=== PATIENT | female | born 1985 | race Caucasian/White ===

== ENCOUNTER 2020-05-27 15:37 | Outpatient (REF) | payer OTHER, SELFPAY ==
--- NOTE | 2020-05-27 15:45 | XR_ITS ---
EXAMINATION: XR CHEST CLINICAL INFORMATION: Cough COMPARISON: Chest x-ray 04/06/2018. Abdomen 02/07/2020 TECHNIQUE: 2 views of the chest were obtained. FINDINGS: Frontal view there is a small vague parenchymal opacity in the subpleural lung at the left lower lobe. This opacity was not present on the abdomen series of 02/07/2020. This opacity measures about 2 cm. Suspect small acute peripheral pneumonia given history of cough. There is no pleural effusion. There is no pulmonary vascular congestion. Cardiac and mediastinal contours are normal. The heart size is normal. There are surgical clips in the upper abdomen XR/XR chest 2V IMPRESSION: Small vague peripheral opacity left lung base suspicious for pneumonia. Short-term follow-up chest x-ray in 2-3 weeks would be helpful for further assessment
== END 2020-05-27 15:38 | disposition home or self-care (01) ==
LOC: HO.XRAY 15:37
PROVIDERS: PCP Family Medicine; Visit Provider Family Medicine
DX: R05 Cough (principal)
CPT/HCPCS: 71046

== ENCOUNTER 2020-06-19 16:03 | Outpatient (REF) | payer OTHER, SELFPAY ==
--- NOTE | 2020-06-19 16:07 | XR_ITS ---
EXAMINATION: XR CHEST CLINICAL INFORMATION: Left lung base density on study of May 27, 2020 COMPARISON: May 27, 2020 TECHNIQUE: 2 views of the chest were obtained. FINDINGS: No significant abnormality is noted involving the heart, lungs, mediastinum, bony thorax or soft tissues. XR/XR chest 2V IMPRESSION: No acute disease.
== END 2020-06-19 16:04 | disposition home or self-care (01) ==
LOC: HO.XRAY 16:03
PROVIDERS: PCP Family Medicine; Visit Provider Family Medicine
DX: R05 Cough (principal); R93.89 Abnormal findings on diagnostic imaging of other specified body structures
CPT/HCPCS: 71046

== ENCOUNTER 2020-09-09 10:17 | Outpatient (REF) | payer OTHER, SELFPAY ==
[2020-09-09 13:35] LABS: MANUAL DIFF FLAG NO
[2020-09-09 13:39] LABS: Basophils Percent Auto 0.6 % (0-2); Eosinophils Absolute Auto 0.2 X10*3/uL (0.0-0.4); Hematocrit 45.2 % (37-47); Hemoglobin 15.1 g/dl (12.0-16.0); Imm Gran Abs Auto 0.02 X10*3/uL (0.00-0.03); Imm Gran Pct Auto 0.3 % (0.0-0.4); Lymphocytes Absolute Auto 2.1 X10*3/uL (1.2-4.9); Lymphocytes Percent Auto 31.2 % (20-40); Mean Corpuscular HGB Conc 33.4 g/dl (31.0-35.0); Mean Corpuscular Hemoglobin 30.3 pg (27.0-33.0); Mean Corpuscular Volume 90.6 fL (80-98); Mean Platelet Volume 10.1 fL (9.4-12.3); Monocytes Absolute Auto 0.4 X10*3/uL (0.1-1.2); Monocytes Percent Auto 6.2 % (2-11); Neutrophils Absolute Auto 3.9 X10*3/uL (2.0-8.3); Neutrophils Percent Auto 58.7 % (45-73); Platelet Count 298 X10*3/uL (160-400); Red Blood Count 4.99 X10*6/uL (4.20-5.50); Red Cell Distribution Width 12.8 % (11.0-16.0); White Blood Count 6.6 X10*3/uL (4.8-10.8)
[2020-09-09 13:57] LABS: Alanine Aminotransferase 15 U/L (0-31); Albumin Level 4.1 g/dL (3.5-5.0); Alkaline Phosphatase 63 U/L (39-117); Anion Gap 12 (12-20); Aspartate Amino Transferase 14 U/L (5-31); Bilirubin Total 0.4 mg/dL (0.0-1.0); Blood Urea Nitrogen 8 mg/dL (9-16); Calcium 8.8 mg/dL (8.4-10.2); Carbon Dioxide 30 mmol/L (22-29); Chloride 103 mmol/L (96-108); Cholesterol 172 mg/dL; Estimated Glomerular Filt Rate > 60; Glucose Fasting 95 mg/dL (60-99); HDL Cholesterol 69 mg/dL; Iron 60 mcg/dL (30-160); LDL Cholesterol Calculated 88 mg/dl; Percent Iron Saturation 18 % (15-50); Potassium 4.6 mmol/L (3.3-5.1); Sodium 140 mmol/L (135-145); Total Iron Binding Capacity 338 mcg/dL (228-428); Total Protein 6.6 g/dL (6.5-8.0); Triglycerides 75 mg/dL; Unsaturated Iron Binding 278 ug/dL
[2020-09-09 14:21] LABS: TSH reflex Free T4 1.46 uIU/mL (0.32-4.0)
[2020-09-09 14:37] LABS: Folate 4.8 ng/mL (> or = 4.0); Vitamin B12 398 pg/mL (200-900)
== END 2020-09-09 10:18 | disposition home or self-care (01) ==
LOC: HO.WFDLDS 10:17
PROVIDERS: Visit Provider Family Medicine
DX: Z00.00 Encounter for general adult medical examination without abnormal findings (principal); R25.1 Tremor, unspecified
CPT/HCPCS: 36415; 80053; 80061; 82607; 82746; 83540; 84443; 85025

== ENCOUNTER 2021-09-19 09:26 | Outpatient (REF) | payer OTHER, SELFPAY ==
[2021-09-19 10:30] LABS: MANUAL DIFF FLAG NO
[2021-09-19 10:36] LABS: Basophils Percent Auto 0.4 % (0-2); Eosinophils Absolute Auto 0.2 X10*3/uL (0.0-0.4); Eosinophils Percent Auto 2.6 % (0-4); Hematocrit 43.2 % (37.0-47.0); Hemoglobin 14.1 g/dl (12.0-16.0); Imm Gran Abs Auto 0.02 X10*3/uL (0.00-0.03); Imm Gran Pct Auto 0.3 % (0.0-0.4); Lymphocytes Absolute Auto 1.8 X10*3/uL (1.2-4.9); Lymphocytes Percent Auto 26.1 % (20-40); Mean Corpuscular HGB Conc 32.6 g/dl (31.0-35.0); Mean Corpuscular Hemoglobin 28.7 pg (27.0-33.0); Mean Platelet Volume 9.8 fL (9.4-12.3); Monocytes Absolute Auto 0.4 X10*3/uL (0.1-1.2); Monocytes Percent Auto 5.8 % (2-11); Neutrophils Absolute Auto 4.5 x10*3/uL (2.0-8.3); Neutrophils Percent Auto 64.8 % (45-73); Platelet Count 318 X10*3/uL (160-400); Red Blood Count 4.91 X10*6/uL (4.20-5.50); Red Cell Distribution Width 12.8 % (11.0-16.0); White Blood Count 6.9 X10*3/uL (4.8-10.8)
[2021-09-19 10:42] LABS: Appearance Urine CLEAR; Color Urine YELLOW; Glucose Urine UA NEG (NEG); Leukocyte Esterase Urine NEG (NEG); Nitrite Urine NEG (NEG); PH 7.5 (5.0-8.0); Specific Gravity - Urine 1.015 (1.005-1.025); Urine Blood NEG (NEG); Urine Ketones NEG (NEG); Urine Protein NEG (NEG-TRACE)
[2021-09-19 10:54] LABS: Alanine Aminotransferase 11 U/L (0-31); Albumin Level 3.9 g/dL (3.5-5.0); Alkaline Phosphatase 64 U/L (39-117); Anion Gap 10 (12-20); Aspartate Amino Transferase 12 U/L (5-31); Bilirubin Total < 0.2 mg/dL (0.0-1.0); Blood Urea Nitrogen 8 mg/dL (9-16); Carbon Dioxide 24 mmol/L (22-29); Chloride 107 mmol/L (96-108); Cholesterol 203 mg/dL; Estimated Glomerular Filt Rate > 60; Glucose Fasting 95 mg/dL (60-99); HDL Cholesterol 68 mg/dL; LDL Cholesterol Calculated 126 mg/dl; Potassium 4.2 mmol/L (3.3-5.1); Sodium 137 mmol/L (135-145); Total Protein 6.6 g/dL (6.5-8.0); Triglycerides 48 mg/dL
[2021-09-19 11:16] LABS: TSH reflex Free T4 1.17 uIU/mL (0.32-4.0)
== END 2021-09-19 09:27 | disposition home or self-care (01) ==
LOC: HO.WFDLDS 09:26
PROVIDERS: Visit Provider Family Medicine
DX: Z00.00 Encounter for general adult medical examination without abnormal findings (principal)
CPT/HCPCS: 36415; 80053; 80061; 81003; 84443; 85025

== ENCOUNTER 2022-06-12 11:53 | Outpatient (REF) | payer OTHER, SELFPAY ==
[2022-06-12 13:31] LABS: Thyroid Stimulating Hormone 1.66 uIU/mL (0.32-4.0)
[2022-06-13 17:45] LABS: Follicle Stimulating Hormone 8.6 mIU/mL; Prolactin 6.2 ng/mL
[2022-06-15 15:48] LABS: Anti-Mullerian Hormone-Female 0.62 ng/mL (0.36-10.07)
[2022-06-18 01:20] LABS: Estradiol Free 0.87 pg/mL; Estradiol, Ultrasensitive 46 pg/mL
== END 2022-06-12 11:54 | disposition home or self-care (01) ==
LOC: HO.LAB 11:53
PROVIDERS: PCP Family Medicine; Visit Provider Obstetrics & Gynecology
DX: N97.9 Female infertility, unspecified (principal)
CPT/HCPCS: 36415; 82397; 82670; 82681; 83001; 84146; 84443

== ENCOUNTER 2022-07-16 15:58 | Outpatient (REF) | payer OTHER, SELFPAY | END 2022-07-16 15:59 | disposition home or self-care (01) | LOC: HO.LAB 15:58 | PROVIDERS: Visit Provider Family Medicine | DX: Z13.89 Encounter for screening for other disorder (principal) ==

== ENCOUNTER 2022-11-05 07:15 | Outpatient (REF) | payer OTHER, SELFPAY ==
--- NOTE | ~2022-11-05 | XR_ITS ---
EXAMINATION: XR CHEST CLINICAL INFORMATION: Cough COMPARISON: Previous chest x-ray most recent June 2020 TECHNIQUE: 2 views of the chest were obtained. FINDINGS: The cardiac and mediastinal contours are stable. There are increased markings in the right upper lobe questionable for small infiltrate. The lungs are otherwise clear. No pleural effusion or pneumothorax. Bony structures are normal. Surgical clips in the region of the stomach. XR/XR chest 2V IMPRESSION: Question small right upper lobe infiltrate. Findings will be communicated by the [place] work flow personal protection specialist.
== END 2022-11-05 07:16 | disposition home or self-care (01) ==
LOC: HO.HMGCX 07:15
PROVIDERS: PCP Family Medicine; Visit Provider Family Medicine
DX: R05.9 Cough, unspecified (principal)
CPT/HCPCS: 71046

== ENCOUNTER 2023-01-08 09:00 | Outpatient (AMB) | payer OTHER, SELFPAY ==
[2023-01-08 09:07] VITALS: BP 110/64; PULSE 93; O2SAT 98; BMI 36.3
--- NOTE | 2023-01-08 09:07 | A.OFFPC_ITS ---
Vital Signs 01/08/23 09:07 Height 4 ft 11.5 in Weight 183 lb BMI 36.3 BP 110/64 Blood Pressure Location Lt brachial Position Sitting Pulse 93 Pulse Oximetry (%) 98 Oxygen Delivery Method Room Air Intake Visit Reasons: CPE with f/u labs and health maint. Intake Note: Patient is here for her physical today. Allergies clindamycin [CLINDAMYCIN] Allergy (Severe, Verified 01/08/23 09:10) RASH Clindamycin HCl Allergy (Unknown, Verified 01/08/23 09:10) rash, full body rash SEASONAL ALLERGIES Allergy (Intermediate, Uncoded 01/08/23 09:10) RUNNY NOSE SNEEZING desolvable stitches Allergy (Mild, Uncoded 01/08/23 09:10) welts DISOLVABLE SUTURES Allergy (Mild, Uncoded 01/08/23 09:10) WELTS Enviromental allergies Allergy (Mild, Uncoded 01/08/23 09:10) runny nose, sneezing Medication List - Last Reconciled 01/08/23 by Rajesh Byrd MD alprazolam 0.25 mg (1/2 x 0.5 mg) PO DAILY PRN 1 month bupropion HCl 300 mg PO QAM 90 days loratadine (Claritin) 10 mg PO DAILY omeprazole magnesium 20 mg PO DAILY paroxetine HCl 40 mg PO DAILY zolpidem 10 mg PO BEDTIME 1 month Tobacco use date assessed: 01/08/23 Dental Screening Dental Screen Date: 01/08/23 Did you have a dental visit in the last 12 months?: Yes Did you have a dental problem in the last 6 months where you did not have access to dental care?: No Was dental information given to patient?: No HPI CPE with f/u labs and health maint. HPI Details 37 y/o female presents for a CPE with f/u labs and health maintenance. No recent labs to review. She is on paroxetine 40mg daily, alprazolam 0.25mg and bupropion for her anxiety/depression. She reports she has started with a psychiatrist for her depression/anxiety. She does note her therapist thinks she has ADHD. She reports a healthy diet. She walks for exercise 2-3x a week. She has an Plant Maintenance Supervisor she follows up with for her pap smears. [facility] Surgical History (Updated 01/08/23 @ 09:13 by Christiane Rai CMA) History of cholecystectomy History of gastric surgery S/P dilatation and curettage Family History (Updated 09/19/21 @ 09:01 by MANSOOR Tobias) Other Mental health disorder Substance use disorder Social History (Updated 09/19/21 @ 09:01 by MANSOOR Tobias) Housing: House Alcohol intake: current Alcohol intake frequency: holidays/special occasions only Patient Tobacco Use Status: Never used Tobacco e-Cigarette/Vaping Use: Never Used Second Hand Smoke Exposure: No service: No Current occupational status: employed 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 1. Little interest or pleasure in doing things: more than half the days 2. Feeling down, depressed, or hopeless: several days 3. Trouble falling or staying asleep, or sleeping too much: not at all 4. Feeling tired or having little energy: several days 5. Poor appetite or overeating: several days 6. Feeling bad about yourself - or that you are a failure or have let yourself or your family down: several days 7. Trouble concentrating on things, such as reading the newspaper or watching television: more than half the days 8. Moving or speaking so slowly that other people could have noticed. Or the opposite - being so fidgety or restless that you have been moving around a lot more than usual: not at all 9. Thoughts that you would be better off or of hurting yourself in some way: not at all Total score: 8 Source: Developed by Drs. Daniel Brody, Simi Olvera, Darrell Floyd and colleagues, with an educational tracy from [employer]. Thrive Questionnaire Date Thrive assessed: 01/08/23 I am a: Patient What is your living situation today?: I have a steady place to live Within the past 12 months, did the food you bought not last and you didn't have the money to get more?: Never true Within the past 12 months, did you worry whether your food would run out before you got money to buy more?: Never true Do you have trouble paying for medicines?: No Do you have trouble getting transportation to medical appointments?: No Do you have trouble paying your heating and electricity bill?: No Do you have trouble taking care of your child, family member or friend?: No Do you have trouble with day-to-day activities such as bathing, preparing meals, shopping, managing finances, etc.?: No Are you currently unemployed and looking for a job?: No Are you interested in more education?: No Please select the resources that you would like help with: None Currently or been in a relationship where the following occur: no concerns reported AUDIT C Alcohol Use Questionnaire (AUDIT-C) 1. How often do you have a drink containing alcohol?: Monthly or less 2. How many drinks containing alcohol do you have on a typical day when you are drinking?: 3 or 4 3. How often do you have six or more drinks on one occasion?: Never Total Score: 2 LEÓN-7 AMB Questionnaire LEÓN-7 Date LEÓN - 7 assessed: 07/15/22 Feeling nervous, anxious, or on edge: 3 = Nearly every day Not being able to stop or control worryin = Nearly every day Worrying too much about different things: 3 = Nearly every day Trouble relaxin = Several days Being so restless that it is hard to sit still: 0 = Not at all Becoming easily annoyed or irritable: 1 = Several days Feeling afraid as if something awful might happen: 3 = Nearly every day Total LEÓN-7 score (0-4 normal; 5-9 mild; 10-14 moderate; 15-21 severe): 14 Source: Developed by Drs. Daniel Brody, Simi Olvera, Darrell Floyd and colleagues, with an educational tracy from [employer]. Review of Systems Const Denies chills, Denies fatigue, Denies fever(s), Denies headache(s) and Denies weakness Eyes Denies change in vision ENT Denies dizziness, Denies headache(s), Denies hearing loss, Denies nasal congestion, Denies sinus pain, Denies sinus pressure and Denies sore throat Card Denies chest pain, Denies lightheadedness, Denies dyspnea and Denies other (palpitations) Resp Denies cough, Denies dyspnea and Denies wheezing GI Denies abdominal pain, Denies melena, Denies hematochezia, Denies change in bowel habits, Denies dyspepsia and Denies nausea Denies hematuria and Denies dysuria Musc Denies abnormal gait, Denies myalgias, Denies arthralgias, Denies numbness and Denies tingling Skin/Breast Denies rash, Denies unusual bruising and Denies wounds Neuro Denies abnormal gait, Denies dizziness, Denies headache(s), Denies memory loss, Denies numbness, Denies Sensory deficit (Neuro), Denies tingling and Denies weakness Psych Denies anxiety, Denies depression and Denies memory loss Endo Denies cold intolerance, Denies fatigue, Denies heat intolerance, Denies polydipsia and Denies polyuria Charles/Lymph Denies easy bleeding and Denies easy bruising Aller/Immun Denies wheezing Physical exam (Primary Care) Vital Signs: Last Vital Signs Pulse 93 01/08/23 09:07 BP 110/64 01/08/23 09:07 Pulse Ox 98 01/08/23 09:07 Oxygen Delivery Method Room Air 01/08/23 09:07 BMI result Body Mass Index 36.3 Tobacco/Smoking Status: Tobacco use Status Tobacco use date assessed 01/08/23 01/08/23 09:19 Patient Tobacco Use Status Never used Tobacco 01/08/23 09:19 e-Cigarette/Vaping Use Never Used 01/08/23 09:19 PHQ-9: PHQ-9 Score PHQ-9: Total score 8 01/08/23 09:34 Thrive Assessment: Date of Thrive Assessment Date Thrive assessed 01/08/23 01/08/23 09:19 Currently or been in a relationship where the following occur: no concerns reported Const General: no acute distress, well developed, alert and awake Nutritional Appearance: well nourished Orientation/consciousness: patient oriented x3 HENMT Head: Yes normocephalic and Yes atraumatic Ears: hearing grossly normal bilaterally and TM's normal bilaterally General nose exam: Normal external nose present and Normal nares present Mouth: Normal oral and palatal mucosa present and moist mucous membranes Teeth and gingiva: dentition normal Throat: Yes posterior oropharynx normal Eyes General: appearance normal, both eyes and all related structures Pupils: Equal, round and reactive pupils present and Pupil accommodation reflex normal EOM: EOMs intact bilaterally Neck Neck: Yes normal visual inspection, Yes no lymphadenopathy and Yes trachea midline Thyroid: Thyroid normal Carotids: no bruits Lymphatic: no lymphadenopathy noted Chest Chest palpation & inspection: normal inspection of the chest Resp Effort & Inspection: normal respiratory effort Auscultation: clear to auscultation bilaterally Cardio Rate: regular rate Rhythm: regular rhythm Heart sounds: S1 normal heart sound present, S2 normal heart sound present, no gallops, no murmurs and no rubs Bruits: no abdominal aortic bruits and no carotid bruits GI Palpation (GI): No Abdominal aortic bruit present, Soft to palpation, nontender, No hepatosplenomegaly present and No Rebound tenderness present Auscultation: normal bowel sounds General: Yes no CVA tenderness Back/Spine/Pelvis Back: no CVA tenderness Cervical Spine: cervical ROM normal and No Cervical spine tenderness Thoracic/Lumbar Spine: thoraco-lumbar ROM normal, No pain with thoraco-lumbar ROM, No thoracic spinal tenderness and No lumbar spinal tenderness Skin Lesions: no lesions Rashes: no rashes Trauma: no lacerations or abrasions Wounds: no wounds Nails: normal Neuro General: patient oriented x3 Cranial nerves: Yes Equal, round and reactive pupils present Cognition (Neuro): normal cognition Gait exam (Neuro): Normal gait present Motor exam (neuro): 5/5 motor strength present throughout Sensory Exam: No Sensory deficit (Neuro) Deep tendon reflexes (DTR's): Right patellar reflex intensity grade: 2+ and Left patellar reflex intensity grade: 2+ Extrem General: Yes normal to inspection and No edema Psych Appearance: grossly normal Affect: normal affect Attitude: cooperative Thought process: Normal thought process present Assessment and Plan Assessment & Plan (1) Annual physical exam: Code(s): Z00.00 - Encounter for general adult medical examination without abnormal findings Plan: 37-year-old female presents for complete physical exam Encouraged healthy diet with active lifestyle and plenty of exercise (2) Depression with anxiety: Code(s): F41.8 - Other specified anxiety disorders Plan: Fairly stable. She is now managed by a psychiatrist (3) Difficulty concentrating: Code(s): R41.840 - Attention and concentration deficit Plan: Therapist suspects she may have ADHD. She plan to self refer for evaluation. (4) Screening for cervical cancer: Code(s): Z12.4 - Encounter for screening for malignant neoplasm of cervix Plan: No followed by resident care technician Recent miscarriage in September. She has follow-up. Orders: Orders Comprehensive [place]. Panel Fast Today Z00.00 - Encounter for general adult medical examination without abnormal findings Lipid Panel Today Z00.00 - Encounter for general adult medical examination without abnormal findings Microalbumin, Random (w Creat) Today I10 - Essential (primary) hypertension UA and rflx microscopic Today Z00.00 - Encounter for general adult medical examination without abnormal findings Coding Level of Care Code Est Pt Prev Care [id number]) Diagnoses Annual physical exam Z00.00 Depression with anxiety F41.8 Difficulty concentrating R41.840 Screening for cervical cancer Z12.4
== END 2023-01-08 09:53 | disposition home or self-care (01) ==
PROVIDERS: PCP Family Medicine; Visit Provider Family Medicine
DX: Z00.00 Encounter for general adult medical examination without abnormal findings (principal); F41.8 Other specified anxiety disorders; R41.840 Attention and concentration deficit; Z12.4 Encounter for screening for malignant neoplasm of cervix
CPT/HCPCS: 99395

== ENCOUNTER 2023-01-08 09:54 | Outpatient (REF) | payer OTHER, SELFPAY ==
[2023-01-08 11:28] LABS: Appearance Urine Clear; Color Urine Yellow; Glucose Urine UA Negative (Negative); Leukocyte Esterase Urine Negative (Negative); Nitrite Urine Negative (Negative); Urine Blood Negative (Negative); Urine Ketones Negative (Negative); Urine Protein Negative (Neg-Trace)
[2023-01-08 13:57] LABS: Creatinine Urine 121.33 mg/dL; Microalbumin Urine < 5.0 mg/L
[2023-01-08 15:04] LABS: Alanine Aminotransferase 39 U/L (0-31); Albumin Level 3.8 g/dL (3.5-5.0); Alkaline Phosphatase 72 U/L (39-117); Anion Gap 15 (12-20); Aspartate Amino Transferase 35 U/L (5-31); Bilirubin Total 0.3 mg/dL (0.0-1.0); Blood Urea Nitrogen 11 mg/dL (9-16); Calcium 8.8 mg/dL (8.4-10.2); Carbon Dioxide 19 mmol/L (22-29); Chloride 108 mmol/L (96-108); Cholesterol 179 mg/dL; Estimated Glomerular Filt Rate > 60; Glucose Fasting 81 mg/dL (60-99); HDL Cholesterol 62 mg/dL; LDL Cholesterol Calculated 104 mg/dl; Potassium 3.9 mmol/L (3.3-5.1); Sodium 138 mmol/L (135-145); Total Protein 6.6 g/dL (6.5-8.0); Triglycerides 68 mg/dL
== END 2023-01-08 09:55 | disposition home or self-care (01) ==
LOC: HO.WFDLDS 09:54
PROVIDERS: Visit Provider Family Medicine
DX: Z00.00 Encounter for general adult medical examination without abnormal findings (principal); I10 Essential (primary) hypertension
CPT/HCPCS: 36415; 80053; 80061; 81003; 82043

== ENCOUNTER 2023-01-29 13:49 | Outpatient (AMB) | payer OTHER, SELFPAY ==
--- NOTE | 2023-01-29 13:45 | MHC.PC.OV ---
Intake Visit Reasons: f/u CPE-labs Intake Note: Patient is here for follow up on labs. Allergies clindamycin [CLINDAMYCIN] Allergy (Severe, Verified 01/08/23 09:10) RASH Clindamycin HCl Allergy (Unknown, Verified 01/08/23 09:10) rash, full body rash SEASONAL ALLERGIES Allergy (Intermediate, Uncoded 01/08/23 09:10) RUNNY NOSE SNEEZING desolvable stitches Allergy (Mild, Uncoded 01/08/23 09:10) welts DISOLVABLE SUTURES Allergy (Mild, Uncoded 01/08/23 09:10) WELTS Enviromental allergies Allergy (Mild, Uncoded 01/08/23 09:10) runny nose, sneezing Tobacco use date assessed: 01/29/23 Dental Screening Dental Screen Date: 01/29/23 Did you have a dental visit in the last 12 months?: Yes Did you have a dental problem in the last 6 months where you did not have access to dental care?: No Was dental information given to patient?: Patient has dentist HPI f/u CPE-labs HPI Details 37 y/o female presents to f/u CPE-labs via telemedicine. Labs were drawn 01/08/23. Reviewed labs with pt. Elevated liver enzymes - AST 35 and ALT 39. Triglycerides 68. TC 179. LDL 104. HDL 62. Pt reports hx of fatty liver disorder and has had an ultrasound prior to 2020. 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 Daniel Brody, Simi Olvera, Darrell Floyd and colleagues, with an educational tracy from [employer]. Review of Systems Const Denies chills, Denies fatigue, Denies fever(s), Denies headache(s) and Denies weakness ENT Denies dizziness and Denies headache(s) Card Denies dyspnea Resp Denies cough, Denies dyspnea, Denies wheezing and Denies other (shortness of breath) Musc Denies numbness and Denies tingling Neuro Denies dizziness, Denies headache(s), Denies numbness, Denies tingling and Denies weakness Psych Denies anxiety and Denies depression Endo Denies fatigue Aller/Immun Denies wheezing Physical exam (Primary Care) Tobacco/Smoking Status: Tobacco use Status Tobacco use date assessed 01/29/23 01/29/23 13:48 Patient Tobacco Use Status Never used Tobacco 01/29/23 13:48 e-Cigarette/Vaping Use Never Used 01/29/23 13:48 Thrive Assessment: Date of Thrive Assessment Date Thrive assessed 01/08/23 01/29/23 13:48 Telehealth Telehealth Location of provider rendering services: practice address Location of patient: address on file Patient Identification confirmed using: Name, : Yes Telehealth method: voice only Patient verbally consented to treatment: Yes Patient verbally consented to billing insurance company: Yes Patient informed of any privacy concerns related to visit: Yes Assessment and Plan Assessment & Plan (1) Elevated liver enzymes: Code(s): R74.8 - Abnormal levels of other serum enzymes Plan: Mildly elevated liver enzymes and patient notes a history of fatty liver disorder. She says that she has had an ultrasound prior to 2020. She will work on a diet with goals to lose between 5 in 10 lb in the next couple of months. Will recheck liver enzymes. If enzymes are the same or higher will repeat liver ultrasound. Buys will continue lifestyle changes and follow labs back to normal range Patient agrees with plan Orders: Orders Comprehensive Met. Panel Today R74.8 - Abnormal levels of other serum enzymes Coding Level of Care Code Tele Est Pt Level 2 (58711) Diagnoses Elevated liver enzymes R74.8
== END 2023-01-29 14:20 | disposition home or self-care (01) ==
LOC: HO.HMGFM 13:49
PROVIDERS: PCP Family Medicine; Visit Provider Family Medicine
DX: R74.8 Abnormal levels of other serum enzymes (principal)
CPT/HCPCS: 99212

== ENCOUNTER 2023-04-09 12:14 | Outpatient (REF) | payer OTHER, SELFPAY ==
[2023-04-09 14:09] LABS: Procalcitonin < 0.02 ng/mL
[2023-04-09 14:10] LABS: Alanine Aminotransferase 14 U/L (0-31); Albumin Level 3.9 g/dL (3.5-5.0); Alkaline Phosphatase 81 U/L (39-117); Anion Gap 12 (12-20); Aspartate Amino Transferase 17 U/L (5-31); Bilirubin Total 0.3 mg/dL (0.0-1.0); Blood Urea Nitrogen 6 mg/dL (9-16); Calcium 8.8 mg/dL (8.4-10.2); Carbon Dioxide 25 mmol/L (22-29); Chloride 106 mmol/L (96-108); Estimated Glomerular Filt Rate > 60; Glucose Random 86 mg/dL (60-115); Potassium 4.1 mmol/L (3.3-5.1); Sodium 139 mmol/L (135-145)
== END 2023-04-09 12:15 | disposition home or self-care (01) ==
LOC: HO.LAB 12:14
PROVIDERS: PCP Family Medicine; Visit Provider Student in an Organized Health Care Education/Training Program
DX: R74.8 Abnormal levels of other serum enzymes (principal); E22.1 Hyperprolactinemia; Z31.49 Encounter for other procreative investigation and testing
CPT/HCPCS: 36415; 80053; 84145

== ENCOUNTER 2023-04-19 10:17 | Outpatient (REF) | payer OTHER, SELFPAY ==
[2023-04-20 07:24] LABS: Prolactin 6.4 ng/mL
== END 2023-04-19 10:18 | disposition home or self-care (01) ==
LOC: HO.LAB 10:17
PROVIDERS: PCP Family Medicine; Visit Provider Student in an Organized Health Care Education/Training Program
DX: Z31.49 Encounter for other procreative investigation and testing (principal); E22.1 Hyperprolactinemia
CPT/HCPCS: 36415; 84146

== ENCOUNTER 2023-04-23 08:50 | Outpatient (AMB) | payer OTHER, SELFPAY ==
--- NOTE | 2023-04-23 08:56 | MHC.PC.OV ---
Vital Signs 04/23/23 08:59 Height 4 ft 11.5 in BMI Reason not done Patient refused/unable BP 108/64 Blood Pressure Location Rt brachial Position Sitting Respiration 13 Pulse 110 H Pulse Source Pulse Oximeter Temp 97.3 F Temp Source Temporal Artery Scan Pulse Oximetry (%) 99 Oxygen Delivery Method Room Air Intake Visit Reasons: f/u elevated liver enzymes Intake Note: Patient would like to discuss some mental health stuff if there is time. Burlap Spreader Required: No Accompanied by: Self / Same As Patient Allergies clindamycin [CLINDAMYCIN] Allergy (Severe, Verified 04/23/23 09:02) RASH Clindamycin HCl Allergy (Unknown, Verified 04/23/23 09:02) rash, full body rash SEASONAL ALLERGIES Allergy (Intermediate, Uncoded 01/08/23 09:10) RUNNY NOSE SNEEZING desolvable stitches Allergy (Mild, Uncoded 01/08/23 09:10) welts DISOLVABLE SUTURES Allergy (Mild, Uncoded 01/08/23 09:10) WELTS Enviromental allergies Allergy (Mild, Uncoded 01/08/23 09:10) runny nose, sneezing Tobacco use date assessed: 01/29/23 Dental Screening Dental Screen Date: 04/23/23 Did you have a dental visit in the last 12 months?: Yes Did you have a dental problem in the last 6 months where you did not have access to dental care?: No Was dental information given to patient?: Patient has dentist HPI f/u elevated liver enzymes HPI Details 37 y/o female presents to f/u elevated liver enzymes. Labs were drawn 04/09/23. Reviewed labs with pt. Liver enzymes improved. AST now 17 and ALT 14. She would like to talk about her anxiety/depression today along with difficulty concentrating. Pt does have a therapist/psychiatrist. Pt reports cold sores. [facility] Medical History (Updated 04/23/23 @ 09:37 by Jas Subramanian) No pertinent past medical history Surgical History S/P dilatation and curettage History of gastric surgery History of cholecystectomy Family History Father Depression Multiple sclerosis Alcoholism Mother High cholesterol ADHD Vitamin D deficiency Other Mental health disorder Substance use disorder Social History Housing: House Alcohol intake: current Alcohol intake frequency: holidays/special occasions only Patient Tobacco Use Status: Never used Tobacco e-Cigarette/Vaping Use: Never Used Second Hand Smoke Exposure: No service: No Current occupational status: employed 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 Daniel Brody, Simi Olvera, Darrell Floyd and colleagues, with an educational tracy from [employer]. Review of Systems Const Denies chills, Denies fatigue, Denies fever(s), Denies headache(s) and Denies weakness ENT Denies dizziness and Denies headache(s) Card Denies dyspnea Resp Denies cough, Denies dyspnea, Denies wheezing and Denies other (shortness of breath) Musc Denies numbness and Denies tingling Neuro Denies dizziness, Denies headache(s), Denies numbness, Denies tingling and Denies weakness Psych Reports anxiety and Reports depression Endo Denies fatigue Aller/Immun Denies wheezing Physical exam (Primary Care) Vital Signs: Last Vital Signs Temp 97.3 F 04/23/23 08:59 Pulse 110 H 04/23/23 08:59 Resp 13 04/23/23 08:59 BP 108/64 04/23/23 08:59 Pulse Ox 99 04/23/23 08:59 Oxygen Delivery Method Room Air 04/23/23 08:59 Tobacco/Smoking Status: Tobacco use Status Tobacco use date assessed 01/29/23 04/23/23 08:58 Patient Tobacco Use Status Never used Tobacco 04/23/23 08:58 e-Cigarette/Vaping Use Never Used 04/23/23 08:58 Thrive Assessment: Date of Thrive Assessment Date Thrive assessed 01/08/23 04/23/23 08:58 Const General: well developed; No acute distress Nutritional Appearance: well nourished Orientation/consciousness: patient oriented x3 HENMT Head: Yes normocephalic and Yes atraumatic Eyes General: appearance normal, both eyes and all related structures Pupils: Equal, round and reactive pupils present EOM: EOMs intact bilaterally Resp Effort & Inspection: normal respiratory effort Neuro General: patient oriented x3 and gait normal Cranial nerves: Yes Equal, round and reactive pupils present Psych Affect: normal affect Assessment and Plan Assessment & Plan (1) Elevated liver enzymes: Code(s): R74.8 - Abnormal levels of other serum enzymes Plan: Back?within?normal?range Encouraged?weight?loss,?good?hydration (2) Depression with anxiety: Code(s): F41.8 - Other specified anxiety disorders Plan: Continue?current?medication?regimen?and?follow-up?with?your?mental?health?providers?as?recommended (3) Difficulty concentrating: Code(s): R41.840 - Attention and concentration deficit Plan: Will?refer?patient?to?neuropsychiatry?for?testing (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 Panel Today R74.8 - Abnormal levels of other serum enzymes Referrals Neuropsychiatry Referral R41.840 - Attention and concentration deficit Coding Level of Care Code Est Pt Level 4 (02473) Diagnoses Elevated liver enzymes R74.8 Depression with anxiety F41.8 Difficulty concentrating R41.840 Recurrent cold sores B00.1
[2023-04-23 08:59] VITALS: BP 108/64; PULSE 110; RESP 13; TEMP 36.3; O2SAT 99
== END 2023-04-23 09:41 | disposition home or self-care (01) ==
PROVIDERS: PCP Family Medicine; Visit Provider Family Medicine
DX: R74.8 Abnormal levels of other serum enzymes (principal); F41.8 Other specified anxiety disorders; R41.840 Attention and concentration deficit; B00.1 Herpesviral vesicular dermatitis
CPT/HCPCS: 99214

== ENCOUNTER 2023-10-27 14:46 | Outpatient (AMB) | payer OTHER, SELFPAY ==
--- NOTE | 2023-10-27 14:57 | MHC.PC.OV ---
Vital Signs 10/27/23 14:58 Height 4 ft 11.5 in Weight 183 lb BMI 36.3 BP 118/69 Blood Pressure Location Lt brachial Position Sitting Pulse 88 Pulse Source Pulse Oximeter Pulse Oximetry (%) 99 Oxygen Delivery Method Room Air Intake Visit Reasons: F/U elev liver enzymes, labs, anxiety/dep Intake Note: Patient is here for follow up on anxiety and depression. Allergies clindamycin [CLINDAMYCIN] Allergy (Severe, Verified 10/27/23 15:01) RASH Clindamycin HCl Allergy (Unknown, Verified 10/27/23 15:01) rash, full body rash SEASONAL ALLERGIES Allergy (Intermediate, Uncoded 10/27/23 15:01) RUNNY NOSE SNEEZING desolvable stitches Allergy (Mild, Uncoded 10/27/23 15:01) welts DISOLVABLE SUTURES Allergy (Mild, Uncoded 10/27/23 15:01) WELTS Enviromental allergies Allergy (Mild, Uncoded 10/27/23 15:01) runny nose, sneezing Medication List - Last Reconciled 10/27/23 by Rajesh Byrd MD alprazolam 0.25 mg (1/2 x 0.5 mg) PO DAILY PRN 1 month bupropion HCl XL 150 mg PO QAM loratadine (Claritin) 10 mg PO DAILY omeprazole magnesium 20 mg PO DAILY paroxetine HCl 20 mg PO DAILY comb no.42-folic acid 1.[address] 1 tab PO DAILY zolpidem 10 mg PO BEDTIME 1 month Tobacco use date assessed: 10/27/23 Dental Screening Dental Screen Date: 10/27/23 Did you have a dental visit in the last 12 months?: Yes Did you have a dental problem in the last 6 months where you did not have access to dental care?: No Was dental information given to patient?: Patient has dentist HPI F/U elev liver enzymes, labs, anxiety/dep HPI Details 38 y/o female presents to f/u elevated liver enzymes, difficulty concentrating, anxiety/depression. No recent labs to review for her liver enzymes. PHQ-9 5, LEÓN-7 5 today. She is on bupropion 150mg, alprazolam 0.25mg daily. She notes she now has a therapist/psychiatrist. Recently well controlled but had a recent miscarriage. Current symptoms due to acute adjustment. She has good family support. HPI Comments History of Present Illness Details Documentation assistance for Rajesh Byrd MD, was provided by Jas Subramanian, [employer] on 10/27/2023 3:21 PM AVANI. I, Dr. Byrd, have read, observed, and verified documentation. [facility] Medical History No pertinent past medical history Surgical History S/P dilatation and curettage History of gastric surgery History of cholecystectomy Family History Father Depression Multiple sclerosis Alcoholism Mother High cholesterol ADHD Vitamin D deficiency Other Mental health disorder Substance use disorder Social History Housing: House Alcohol intake: current Alcohol intake frequency: holidays/special occasions only Patient Tobacco Use Status: Never used Tobacco e-Cigarette/Vaping Use: Never Used Second Hand Smoke Exposure: No service: No Current occupational status: employed 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 1. Little interest or pleasure in doing things: more than half the days 2. Feeling down, depressed, or hopeless: not at all 3. Trouble falling or staying asleep, or sleeping too much: not at all 4. Feeling tired or having little energy: several days 5. Poor appetite or overeating: not at all 6. Feeling bad about yourself - or that you are a failure or have let yourself or your family down: several days 7. Trouble concentrating on things, such as reading the newspaper or watching television: several days 8. Moving or speaking so slowly that other people could have noticed. Or the opposite - being so fidgety or restless that you have been moving around a lot more than usual: not at all 9. Thoughts that you would be better off or of hurting yourself in some way: not at all Total score: 5 Depression Screening Interpretation: Negative Depression Screening Done: Yes 54302 - PHQ-9 Billing: Yes Source: Developed by Drs. Daniel Brody, Simi Olvera, Darrell Floyd and colleagues, with an educational tracy from [employer]. Thrive Questionnaire Date Thrive assessed: 01/08/23 LEÓN-7 AMB Questionnaire LEÓN-7 Date LEÓN - 7 assessed: 10/27/23 Feeling nervous, anxious, or on edge: 1 = Several days Not being able to stop or control worryin = Several days Worrying too much about different things: 1 = Several days Trouble relaxin = Not at all Being so restless that it is hard to sit still: 0 = Not at all Becoming easily annoyed or irritable: 2 = More than half the days Feeling afraid as if something awful might happen: 0 = Not at all Total LEÓN-7 score (0-4 normal; 5-9 mild; 10-14 moderate; 15-21 severe): 5 Source: Developed by Drs. Daniel Brody, Simi Olvera, Darrell Floyd and colleagues, with an educational tracy from [employer]. LEÓN-7 Assessment Billing LEÓN-7 Assessment Tool: LEÓN-7 Assessment 56898 Review of Systems Const Denies chills, Denies fatigue, Denies fever(s), Denies headache(s) and Denies weakness ENT Denies dizziness and Denies headache(s) Card Denies dyspnea Resp Denies cough, Denies dyspnea, Denies wheezing and Denies other (shortness of breath) Musc Denies numbness and Denies tingling Neuro Denies dizziness, Denies headache(s), Denies numbness, Denies tingling and Denies weakness Psych Reports anxiety and Reports depression Endo Denies fatigue Aller/Immun Denies wheezing Physical exam (Primary Care) Vital Signs: Last Vital Signs Pulse 88 10/27/23 14:58 BP 118/69 10/27/23 14:58 Pulse Ox 99 10/27/23 14:58 Oxygen Delivery Method Room Air 10/27/23 14:58 BMI result Body Mass Index 36.3 Tobacco/Smoking Status: Tobacco use Status Tobacco use date assessed 10/27/23 10/27/23 15:11 Patient Tobacco Use Status Never used Tobacco 10/27/23 14:59 e-Cigarette/Vaping Use Never Used 10/27/23 14:59 PHQ-9: PHQ-9 Score PHQ-9: Total score 5 10/27/23 15:11 Depression Screening Interpretation: Negative Thrive Assessment: Date of Thrive Assessment Date Thrive assessed 01/08/23 10/27/23 14:59 Const General: well developed; No acute distress Nutritional Appearance: obese Orientation/consciousness: patient oriented x3 HENMT Head: Yes normocephalic and Yes atraumatic Eyes General: appearance normal, both eyes and all related structures Pupils: Equal, round and reactive pupils present EOM: EOMs intact bilaterally Resp Effort & Inspection: normal respiratory effort Auscultation: clear to auscultation bilaterally Cardio Rate: regular rate Rhythm: regular rhythm Heart sounds: S1 normal heart sound present, S2 normal heart sound present, no gallops, no murmurs and no rubs Neuro General: patient oriented x3 and gait normal Cranial nerves: Yes Equal, round and reactive pupils present Psych Affect: normal affect Assessment and Plan Assessment & Plan (1) Depression with anxiety: Code(s): F41.8 - Other specified anxiety disorders Plan: PHQ-9?and?león?7?show?borderline?depression?and?anxiety Now?has?a?therapist?and?a?psychiatrist She?says?she?has?been?well?controlled?but?had?a?recent?miscarriage?so?current?symptoms?are?due?to?this?acute?adjustment. Follow-up?with?psychiatry?and?therapist?as?recommended Also?has?good?family?support (2) Elevated liver enzymes: Code(s): R74.8 - Abnormal levels of other serum enzymes Plan: Liver?enzymes?had?been?elevated?then?more?recently?were?back?within?normal?range.??Had?wanted?to?follow-up?on?this Has?not?had?her?labs?drawn?yet. Had?been?work?on?weight?loss?but?after?above?stressors,?she?has?gained?back?weight. She?can?get?her?labs?drawn?prior?to?her?next?visit?which?will?be?her?physical. We?can?follow-up?on?her?the?elevated?liver?enzymes?then. Orders: Orders Lipid Panel Today Z00.00 - Encounter for general adult medical examination without abnormal findings TSH reflex Free T4 Today Z00.00 - Encounter for general adult medical examination without abnormal findings Comprehensive [place]. Panel Fast Today Z00.00 - Encounter for general adult medical examination without abnormal findings Complete Blood Count Auto Diff Today Z00.00 - Encounter for general adult medical examination without abnormal findings Microalbumin, Random (w Creat) Today I10 - Essential (primary) hypertension UA and rflx microscopic Today Z00.00 - Encounter for general adult medical examination without abnormal findings Coding Level of Care Code Est Pt Level 3 (05204) Diagnoses Depression with anxiety F41.8 Elevated liver enzymes R74.8 Additional Codes LEÓN-7 Assessment Billing - LEÓN-7 Assessment Tool: LEÓN-7 Assessment 48106 ([id number])
[2023-10-27 14:58] VITALS: BP 118/69; PULSE 88; O2SAT 99; BMI 36.3
== END 2023-10-27 15:50 | disposition home or self-care (01) ==
LOC: HO.HMGFM 14:48
PROVIDERS: PCP Family Medicine; Visit Provider Family Medicine
DX: F41.8 Other specified anxiety disorders (principal); R74.8 Abnormal levels of other serum enzymes
CPT/HCPCS: 99213

== ENCOUNTER 2024-06-05 09:46 | Outpatient (AMB) | payer OTHER, SELFPAY ==
--- NOTE | 2024-06-05 09:50 | A.OFFPC_ITS ---
Vital Signs 06/05/24 09:56 Height 4 ft 11.5 in Weight 195 lb 4 oz BMI 38.8 BP 100/70 Blood Pressure Location Lt brachial Position Sitting Respiration 12 Pulse 102 H Pulse Source Palpation Intake Visit Reasons: F/u anxiety/depression Intake Note: f/u anxiety and depression Allergies clindamycin [CLINDAMYCIN] Allergy (Severe, Verified 06/05/24 09:53) RASH Clindamycin HCl Allergy (Unknown, Verified 06/05/24 09:53) rash, full body rash SEASONAL ALLERGIES Allergy (Intermediate, Uncoded 10/27/23 15:01) RUNNY NOSE SNEEZING desolvable stitches Allergy (Mild, Uncoded 10/27/23 15:01) welts DISOLVABLE SUTURES Allergy (Mild, Uncoded 10/27/23 15:01) WELTS Enviromental allergies Allergy (Mild, Uncoded 10/27/23 15:01) runny nose, sneezing Medication List - Last Reconciled 06/05/24 by Rajesh Byrd MD alprazolam 0.25 mg (1/2 x 0.5 mg) PO DAILY PRN 1 month loratadine (Claritin) 10 mg PO DAILY omeprazole magnesium 20 mg PO DAILY ondansetron HCl 4 mg PO Q8H PRN comb no.42-folic acid 1.[address] 1 tab PO DAILY progesterone micronized mg PO sertraline mg PO sertraline 50 mg PO DAILY valacyclovir 4,000 mg PO ONCE zolpidem 10 mg PO BEDTIME 1 month Tobacco use date assessed: 10/27/23 Dental Screening Dental Screen Date: 10/27/23 HPI F/u anxiety/depression HPI Details 38 y/o female presents to f/u anxiety/de pression. She notes medication regimen is being managed by her psychiatrist. She also has a therapist. She is on sertraline 100mg. 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 Hx of elevated liver enzymes. 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 1. Little interest or pleasure in doing things: not at all 2. Feeling down, depressed, or hopeless: several days 3. Trouble falling or staying asleep, or sleeping too much: several days 4. Feeling tired or having little energy: several days 5. Poor appetite or overeating: several days 6. Feeling bad about yourself - or that you are a failure or have let yourself or your family down: not at all 7. Trouble concentrating on things, such as reading the newspaper or watching television: nearly every day 8. Moving or speaking so slowly that other people could have noticed. Or the opposite - being so fidgety or restless that you have been moving around a lot more than usual: not at all 9. Thoughts that you would be better off or of hurting yourself in some way: not at all Total score: 7 Source: Developed by Drs. Daniel Brody, Simi Olvera, Darrell Floyd and colleagues, with an educational tracy from [employer]. Thrive Questionnaire Date Thrive assessed: 01/08/23 I am a: Patient What is your living situation today?: I have a steady place to live Within the past 12 months, did the food you bought not last and you didn't have the money to get more?: Never true Within the past 12 months, did you worry whether your food would run out before you got money to buy more?: Never true Do you have trouble paying for medicines?: No Do you have trouble getting transportation to medical appointments?: No Do you have trouble paying your heating and electricity bill?: No Do you have trouble taking care of your child, family member or friend?: No Do you have trouble with day-to-day activities such as bathing, preparing meals, shopping, managing finances, etc.?: No Are you currently unemployed and looking for a job?: No Are you interested in more education?: No Please select the resources that you would like help with: None Currently or been in a relationship where the following occur: No concerns reported THRIVE Score: 0 AUDIT C Alcohol Use Questionnaire (AUDIT-C) 1. How often do you have a drink containing alcohol?: Monthly or less 2. How many drinks containing alcohol do you have on a typical day when you are drinking?: 3 or 4 3. How often do you have six or more drinks on one occasion?: Less than monthly Total Score: 3 LEÓN-7 AMB Questionnaire LEÓN-7 Date LEÓN - 7 assessed: 10/27/23 Feeling nervous, anxious, or on edge: 2 = More than half the days Not being able to stop or control worryin = More than half the days Worrying too much about different things: 2 = More than half the days Trouble relaxin = More than half the days Being so restless that it is hard to sit still: 0 = Not at all Becoming easily annoyed or irritable: 3 = Nearly every day Feeling afraid as if something awful might happen: 3 = Nearly every day Total LEÓN-7 score (0-4 normal; 5-9 mild; 10-14 moderate; 15-21 severe): 14 Source: Developed by Drs. Daniel Brody, Simi Olvera, Darrell Floyd and colleagues, with an educational tracy from [employer]. Review of Systems Const Denies chills, Denies fatigue, Denies fever(s), Denies headache(s) and Denies weakness ENT Denies dizziness and Denies headache(s) Card Denies chest pain, Denies lightheadedness, Denies dyspnea and Denies other (Palpitations) Resp Denies cough, Denies dyspnea, Denies wheezing and Denies other ( shortness of breath) Musc Denies numbness and Denies tingling Neuro Denies dizziness, Denies headache(s), Denies numbness, Denies tingling, Denies paresthesias and Denies weakness Psych Reports anxiety and Reports depression Endo Denies fatigue Aller/Immun Denies wheezing Physical exam (Primary Care) Vital Signs: Last Vital Signs Pulse 102 H 06/05/24 09:56 Resp 12 06/05/24 09:56 BP 100/70 06/05/24 09:56 BMI result Body Mass Index 38.8 Tobacco/Smoking Status: Tobacco use Status Tobacco use date assessed 10/27/23 06/05/24 09:52 Patient Tobacco Use Status Never used Tobacco 06/05/24 09:52 e-Cigarette/Vaping Use Never Used 06/05/24 09:52 PHQ-9: PHQ-9 Score PHQ-9: Total score 7 06/05/24 10:10 Thrive Assessment: Date of Thrive Assessment Date Thrive assessed 01/08/23 06/05/24 09:52 Currently or been in a relationship where the following occur: No concerns reported Const General: no acute distress and well developed Nutritional Appearance: well nourished Orientation/consciousness: patient oriented x3 HENMT Head: Yes normocephalic and Yes atraumatic Eyes General: appearance normal, both eyes and all related structures Pupils: Equal, round and reactive pupils present EOM: EOMs intact bilaterally Resp Effort & Inspection: normal respiratory effort Auscultation: clear to auscultation bilaterally Cardio Rate: regular rate Rhythm: regular rhythm Heart sounds: S1 normal heart sound present, S2 normal heart sound present, no gallops, no murmurs and no rubs Neuro General: patient oriented x3 and gait normal Cranial nerves: Yes Equal, round and reactive pupils present Psych Affect: normal affect Coding Level of Care Code Est Pt Level 4 (00709) Diagnoses Depression with anxiety F41.8 Elevated liver enzymes R74.8 Recurrent cold sores B00.1 Dysuria R30.0 Difficulty concentrating R41.840 Assessment & Plan Assessment & Plan (1) Depression with anxiety: Code(s): F41.8 - Other specified anxiety disorders Category: Medical Plan: She?is?taking?sertraline?150?mg?daily?and?alprazolam?p.r.n. These?medications?are?managed?by?her?psychiatrist?and?she?also?has?a?therapist. Follow-up?with?your?behavioral?health?team?as?recommended (2) Elevated liver enzymes: Code(s): R74.8 - Abnormal levels of other serum enzymes Category: Medical Plan: Patient?has?had?mildly?elevated?liver?enzymes?in?the?past. 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 She?says?her?therapist?believes?that?she?has?ADD. Patient?would?like?a?referral?to?Mariaelena?Karine?at?[facility]?consult?team-referred We?discussed?that?willing?to?consider?use?medications?for?ADD/ADHD?though?I?woul d?defer?to?psychiatrist?if?this?psychiatrist?willing?prescribed?these?medication s. Also,?patient ?is?working?with?an?IVF?team?and?we?discussed?that?if?she?gets??we?disco ntinue?medications.??Patient?understands. Orders: Orders TSH reflex Free T4 Today Z00.00 - Encounter for general adult medical examination without abnormal findings UA and rflx microscopic Today Z00.00 - Encounter for general adult medical examination without abnormal findings Microalbumin, Random (w Creat) Today I10 - Essential (primary) hypertension Comprehensive [place]. Panel Fast Today Z00.00 - Encounter for general adult medical examination without abnormal findings Lipid Panel Today Z00.00 - Encounter for general adult medical examination without abnormal findings Urine Culture Today R30.0 - Dysuria Complete Blood Count Auto Diff Today Z00.00 - Encounter for general adult medical examination without abnormal findings Referrals Psychiatry Outpatient Consultation Service R41.840 - Attention and concentration deficit Medications: New valacyclovir 500 mg PO Q12H 14 days 28 tabs 3RF
[2024-06-05 09:56] VITALS: BP 100/70; PULSE 102; RESP 12; BMI 38.8
== END 2024-06-05 10:25 | disposition home or self-care (01) ==
PROVIDERS: PCP Family Medicine; Visit Provider Family Medicine
DX: F41.8 Other specified anxiety disorders (principal); R74.8 Abnormal levels of other serum enzymes; B00.1 Herpesviral vesicular dermatitis; R30.0 Dysuria; R41.840 Attention and concentration deficit

== ENCOUNTER → 2024-06-05 09:46 | Outpatient (BNVA) | payer OTHER, SELFPAY | PROVIDERS: PCP Family Medicine; Visit Provider Family Medicine ==

== ENCOUNTER 2024-06-06 09:22 | Outpatient (REF) | payer OTHER, SELFPAY ==
[2024-06-06 09:50] LABS: MANUAL DIFF FLAG NO
[2024-06-06 11:02] LABS: Basophils Percent Auto 0.4 % (0-2); Eosinophils Absolute Auto 0.2 X10*3/uL (0.0-0.4); Eosinophils Percent Auto 2.2 % (0-4); Hematocrit 38.8 % (37.0-47.0); Hemoglobin 12.2 g/dl (12.0-16.0); Imm Gran Abs Auto 0.04 X10*3/uL (0.00-0.03); Imm Gran Pct Auto 0.4 % (0.0-0.4); Lymphocytes Absolute Auto 1.5 X10*3/uL (1.2-4.9); Lymphocytes Percent Auto 15.2 % (20-40); Mean Corpuscular HGB Conc 31.4 g/dl (31.0-35.0); Mean Corpuscular Hemoglobin 24.2 pg (27.0-33.0); Mean Corpuscular Volume 76.8 fL (80.0-98.0); Monocytes Absolute Auto 0.6 X10*3/uL (0.1-1.2); Monocytes Percent Auto 5.7 % (2-11); Neutrophils Absolute Auto 7.4 x10*3/uL (2.0-8.3); Neutrophils Percent Auto 76.1 % (45-73); Platelet Count 308 X10*3/uL (160-400); Red Blood Count 5.05 X10*6/uL (4.20-5.50); White Blood Count 9.7 X10*3/uL (4.8-10.8)
[2024-06-06 11:20] LABS: Appearance Urine Turbid; Color Urine Yellow; Glucose Urine UA Negative (Negative); Leukocyte Esterase Urine Large (3+) (Negative); Nitrite Urine Negative (Negative); PH 6.5 (5.0-9.0); UMIC TRIGGER UA YES; Urine Blood Moderate (2+) (Negative); Urine Ketones Negative (Negative); Urine Protein 30 (1+) mg/dL (Neg-Trace)
[2024-06-06 11:28] LABS: Bacteria Urine 4+ (None Seen); Hyaline Casts Urine 0-2 /LPF (0-2); RBC Urine >20 /HPF (0-2); WBC Urine >50 /HPF (0-5)
[2024-06-06 11:44] LABS: Alanine Aminotransferase 15 U/L (0-31); Alkaline Phosphatase 82 U/L (39-117); Anion Gap 12 (12-20); Aspartate Amino Transferase 18 U/L (5-31); Bilirubin Total 0.3 mg/dL (0.0-1.0); Blood Urea Nitrogen 9 mg/dL (9-16); Calcium 8.9 mg/dL (8.4-10.2); Carbon Dioxide 23 mmol/L (22-29); Chloride 107 mmol/L (96-108); Cholesterol 219 mg/dL (<200); Estimated Glomerular Filt Rate > 60; Glucose Fasting 85 mg/dL (60-99); HDL Cholesterol 71 mg/dL (>40); LDL Cholesterol Calculated 132 mg/dL (<100); Potassium 4.1 mmol/L (3.3-5.1); Sodium 138 mmol/L (135-145); Total Protein 7.1 g/dL (6.5-8.0); Triglycerides 80 mg/dL (<150)
[2024-06-06 11:51] LABS: Creatinine Urine 71.89 mg/dL
[2024-06-06 12:09] LABS: TSH reflex Free T4 1.09 uIU/mL (0.32-4.0)
== END 2024-06-06 09:23 | disposition home or self-care (01) ==
LOC: HO.LAB 09:22
PROVIDERS: PCP Family Medicine; Visit Provider Family Medicine
DX: Z00.00 Encounter for general adult medical examination without abnormal findings (principal); R30.0 Dysuria; I10 Essential (primary) hypertension
CPT/HCPCS: 36415; 80053; 80061; 81001; 82043; 82570; 84443; 85025; 87086; 87088; 87186

== ENCOUNTER → 2024-07-04 12:00 | Outpatient (AMB) | payer OTHER, SELFPAY ==
--- NOTE | 2024-07-04 11:57 | A.OFFPC_ITS ---
Intake Visit Reasons: f/u labs via telemedicine Allergies clindamycin [CLINDAMYCIN] Allergy (Severe, Verified 07/04/24 11:58) RASH Clindamycin HCl Allergy (Unknown, Verified 07/04/24 11:58) rash, full body rash SEASONAL ALLERGIES Allergy (Intermediate, Uncoded 10/27/23 15:01) RUNNY NOSE SNEEZING desolvable stitches Allergy (Mild, Uncoded 10/27/23 15:01) welts DISOLVABLE SUTURES Allergy (Mild, Uncoded 10/27/23 15:01) WELTS Enviromental allergies Allergy (Mild, Uncoded 10/27/23 15:01) runny nose, sneezing Medication List - Last Reconciled 07/04/24 by Rajesh Byrd MD alprazolam 0.25 mg (1/2 x 0.5 mg) PO DAILY PRN 1 month loratadine (Claritin) 10 mg PO DAILY omeprazole magnesium 20 mg PO DAILY ondansetron HCl 4 mg PO Q8H PRN comb no.42-folic acid 1.[address] 1 tab PO DAILY progesterone micronized mg PO sertraline mg PO sertraline 50 mg PO DAILY valacyclovir 4,000 mg PO ONCE valacyclovir 500 mg PO Q12H 14 days zolpidem 10 mg PO BEDTIME 1 month Tobacco use date assessed: 10/27/23 Dental Screening Dental Screen Date: 10/27/23 HPI f/u labs via telemedicine HPI Details 38 y/o female presents to f/u labs via [facility]. Labs drawn 06/06/24. Reviewed labs with pt. Mild microcytosis. Triglycerides 80. TC 219. LDl 132. HDL 71. Abnormal urine findings. 4+ urine bacteria. Urine RBC>20. Urine WBC>50. HPI Comments History of Present Illness Details Documentation assistance for Rajesh Byrd MD, was provided by Jas Subramanian,? [employer] on 07/04/2024 at 12:13 PM EST. I, Dr. Byrd, have read, observed, and verified documentation. ?? 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 occupational exposures/hazards: No Cognitive needs: No Hearing needs: No Vision needs: No Questionnaire Thrive Questionnaire Date Thrive assessed: 06/05/24 I am a: Patient What is your living situation today?: I have a steady place to live Within the past 12 months, did the food you bought not last and you didn't have the money to get more?: Never true Within the past 12 months, did you worry whether your food would run out before you got money to buy more?: Never true Do you have trouble paying for medicines?: No Do you have trouble getting transportation to medical appointments?: No Do you have trouble paying your heating and electricity bill?: No Do you have trouble taking care of your child, family member or friend?: No Do you have trouble with day-to-day activities such as bathing, preparing meals, shopping, managing finances, etc.?: No Are you currently unemployed and looking for a job?: No Are you interested in more education?: No Please select the resources that you would like help with: None Currently or been in a relationship where the following occur: No concerns reported THRIVE Score: 0 AUDIT C Alcohol Use Questionnaire (AUDIT-C) 2. How many drinks containing alcohol do you have on a typical day when you are drinking?: 1 or 2 3. How often do you have six or more drinks on one occasion?: Less than monthly Total Score: 1 LEÓN-7 AMB Questionnaire LEÓN-7 Date LEÓN - 7 assessed: 10/27/23 Source: Developed by Drs. Daniel Brody, Simi Olvera, Darrell Floyd and colleagues, with an educational tracy from [employer]. Physical exam (Primary Care) Tobacco/Smoking Status: Tobacco use Status Tobacco use date assessed 10/27/23 07/04/24 12:00 Patient Tobacco Use Status Never used Tobacco 07/04/24 12:00 e-Cigarette/Vaping Use Never Used 07/04/24 12:00 Thrive Assessment: Date of Thrive Assessment Date Thrive assessed 06/05/24 07/04/24 12:00 Currently or been in a relationship where the following occur: No concerns reported Telehealth Telehealth Telehealth Platform: Telephone Location of provider rendering services: practice address Location of patient: address on file Patient Identification confirmed using: Name, : Yes Telehealth method: voice only Patient verbally consented to treatment: Yes Patient verbally consented to billing insurance company: Yes Patient informed of any privacy concerns related to visit: Yes Minutes spent on Phone/Video with Pt.: 6 Coding Level of Care Code Tele Est Pt Level 2 (73365) Diagnoses Elevated LDL cholesterol level E78.00 Microcytosis R71.8 Elevated liver enzymes R74.8 Abnormal urine findings R82.90 Difficulty concentrating R41.840 Assessment & Plan Assessment & Plan (1) Elevated LDL cholesterol level: Code(s): E78.00 - Pure hypercholesterolemia, unspecified Category: Medical Plan: LDL?cholesterol?is?high.??HDL?ratios?okay Encouraged?a?diet?lower?in?saturated?fats?and?cholesterol (2) Microcytosis: Code(s): R71.8 - Other abnormality of red blood cells Category: Medical Plan: Mild?microcytosis?on?CBC. Encouraged?a?diet?with?plenty?iron We?can?monitor?periodically (3) Elevated liver enzymes: Code(s): R74.8 - Abnormal levels of other serum enzymes Category: Medical Plan: History?of?elevated?liver?enzymes?though?these?again?within?normal?limits (4) Abnormal urine findings: Code(s): R82.90 - Unspecified abnormal findings in urine Category: Medical Plan: Urine?studies?were?suspicious?for?UTI?and?culture?came?back?positive. Had?treated?with?cephalexin. Patient?notes?there?was?significant?improvement?but?not?fully?resolved?symptoms. Will?recheck?urine?studies (5) Difficulty concentrating: Code(s): R41.840 - Attention and concentration deficit Category: Medical Plan: Had?referred?patient?to?[facility]?psychiatric?consult?team.??She?has?not?heard?back?fr om?them.??I?have?asked?the?office?to?check?on?the?status?of?this?referral Orders: Orders UA and rflx microscopic Today R82.90 - Unspecified abnormal findings in urine, Z00.00 - Encounter for general adult medical examination without abnormal findings Urine Culture Today R82.90 - Unspecified abnormal findings in urine Complete Blood Count Auto Diff Today R71.8 - Other abnormality of red blood cells, Z00.00 - Encounter for general adult medical examination without abnormal findings Comprehensive Met. Panel Today R74.8 - Abnormal levels of other serum enzymes
== END ==
LOC: HO.HMCFM 12:00
PROVIDERS: PCP Family Medicine; Visit Provider Family Medicine
DX: E78.00 Pure hypercholesterolemia, unspecified (principal); R71.8 Other abnormality of red blood cells; R74.8 Abnormal levels of other serum enzymes; R82.90 Unspecified abnormal findings in urine; R41.840 Attention and concentration deficit

== ENCOUNTER 2024-07-20 08:13 | Outpatient (REF) | payer OTHER, SELFPAY | END 2024-07-20 08:14 | disposition home or self-care (01) | LOC: HO.LAB 08:13 | PROVIDERS: PCP Family Medicine | DX: J06.9 Acute upper respiratory infection, unspecified (principal) | CPT/HCPCS: 87880 ==

== ENCOUNTER 2024-07-20 08:13 | Outpatient (AMB) | payer OTHER, SELFPAY ==
--- NOTE | 2024-07-20 08:27 | AM.OFFWIN_ITS ---
Intake Vital Signs 07/20/24 08:29 Weight 190 lb BP 100/60 Blood Pressure Location Lt brachial Position Sitting Pulse 97 Pulse Source Pulse Oximeter Pulse Oximetry (%) 98 Oxygen Delivery Method Room Air Intake Visit Reasons: EP Sore throat, cough, chest denzel, headache Intake Note: Patient here for sore throat, cough, chest congestion and headache that has been present for about 3 days. Patient Tobacco Use Status: Never used Tobacco Allergies clindamycin [CLINDAMYCIN] Allergy (Severe, Verified 07/20/24 08:28) RASH Clindamycin HCl Allergy (Unknown, Verified 07/20/24 08:28) rash, full body rash SEASONAL ALLERGIES Allergy (Intermediate, Uncoded 07/20/24 08:28) RUNNY NOSE SNEEZING desolvable stitches Allergy (Mild, Uncoded 07/20/24 08:28) welts DISOLVABLE SUTURES Allergy (Mild, Uncoded 07/20/24 08:28) WELTS Enviromental allergies Allergy (Mild, Uncoded 07/20/24 08:28) runny nose, sneezing Do you need a note to return to daycare/school/sports/work: No HPI HPI Comments History of Present Illness Details 38 y/o female patient who presents to [facility] in clinic with c/o URI symptoms x 3 days. Reports cough, sore-throat, body aches and headaches. [facility] Medical History (Updated 07/20/24 @ 08:52 by Maida Rojas NP) Acute respiratory disease No pertinent past medical history Surgical History S/P dilatation and curettage History of gastric surgery History of cholecystectomy Family History Father Depression Multiple sclerosis Alcoholism Mother High cholesterol ADHD Vitamin D deficiency Other Mental health disorder Substance use disorder Social History Housing: House Alcohol intake: current Alcohol intake frequency: holidays/special occasions only Patient Tobacco Use Status: Never used Tobacco e-Cigarette/Vaping Use: Never Used Second Hand Smoke Exposure: No service: No Current occupational status: employed 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 occupational exposures/hazards: No Cognitive needs: No Hearing needs: No Vision needs: No Review of Systems Const All systems reviewed & are unremarkable except as noted in HPI and below Physical Exam Vital Signs: Last Vital Signs Pulse 97 07/20/24 08:29 BP 100/60 07/20/24 08:29 Pulse Ox 98 07/20/24 08:29 Oxygen Delivery Method Room Air 07/20/24 08:29 Const General: cooperative and no acute distress Nutritional Appearance: overweight Orientation/consciousness: patient oriented x3 HEENT Head: Yes normocephalic Ears: external ears normal and TM abnormal bulging bilateral and with fluid behind the TM bilateral General nose exam: Nasal discharge present Mouth: moist mucous membranes Resp Effort & Inspection: normal respiratory effort, able to speak in complete sentences, no audible wheezes and Actively coughing Auscultation: clear to auscultation bilaterally, no crackles, no rales, no rhonchi and no wheezes Cardio Heart sounds: S1 normal heart sound present and S2 normal heart sound present Neuro General: patient oriented x3 Assessment & Plan Assessment & Plan (1) Acute respiratory disease: Code(s): J06.9 - Acute upper respiratory infection, unspecified Plan: Rapid strep negative. Ordered SARs Acetaminophen for pain relief Rest and hydrate well with warm fluids Orders: Orders SARS-CoV2/FLU/RSV Today J06.9 - Acute upper respiratory infection, unspecified Coding Level of Care Code Est Pt Level 4 (83531) Diagnoses Acute respiratory disease J06.9 Time Spent (min) 20
[2024-07-20 08:29] VITALS: BP 100/60; PULSE 97; O2SAT 98
== END 2024-07-20 08:59 | disposition home or self-care (01) ==
PROVIDERS: PCP Family Medicine; Visit Provider Nurse Practitioner Family
DX: J06.9 Acute upper respiratory infection, unspecified (principal); Z13.9 Encounter for screening, unspecified

== ENCOUNTER 2024-07-20 09:14 | Outpatient (REF) | payer OTHER, SELFPAY ==
[2024-07-20 10:15] LABS: MANUAL DIFF FLAG NO
[2024-07-20 10:20] LABS: Appearance Urine Clear; Color Urine Yellow; Glucose Urine UA Negative (Negative); Leukocyte Esterase Urine Negative (Negative); Nitrite Urine Negative (Negative); PH 6.5 (5.0-9.0); Specific Gravity - Urine 1.025 (1.005-1.025); UMIC TRIGGER UA YES; Urine Blood Moderate (2+) (Negative); Urine Ketones Trace mg/dL (Negative); Urine Protein Negative (Neg-Trace)
[2024-07-20 10:23] LABS: Basophils Absolute Auto 0.1 X10*3/uL (0.0-0.2); Basophils Percent Auto 0.9 % (0-2); Eosinophils Absolute Auto 0.2 X10*3/uL (0.0-0.4); Eosinophils Percent Auto 2.9 % (0-4); Hematocrit 36.2 % (37.0-47.0); Hemoglobin 11.5 g/dl (12.0-16.0); Imm Gran Abs Auto 0.03 X10*3/uL (0.00-0.03); Imm Gran Pct Auto 0.5 % (0.0-0.4); Lymphocytes Absolute Auto 1.1 X10*3/uL (1.2-4.9); Lymphocytes Percent Auto 20.1 % (20-40); Mean Corpuscular HGB Conc 31.8 g/dl (31.0-35.0); Mean Corpuscular Volume 75.6 fL (80.0-98.0); Mean Platelet Volume 9.9 fL (9.4-12.3); Monocytes Absolute Auto 0.5 X10*3/uL (0.1-1.2); Monocytes Percent Auto 8.9 % (2-11); Neutrophils Absolute Auto 3.7 x10*3/uL (2.0-8.3); Neutrophils Percent Auto 66.7 % (45-73); Platelet Count 290 X10*3/uL (160-400); Red Blood Count 4.79 X10*6/uL (4.20-5.50); Red Cell Distribution Width 15.1 % (11.0-16.0); White Blood Count 5.5 X10*3/uL (4.8-10.8)
[2024-07-20 10:42] LABS: Bacteria Urine 1+ (None Seen); Hyaline Casts Urine 0-2 /LPF (0-2); WBC Urine 0-5 /HPF (0-5)
[2024-07-20 10:58] LABS: Alanine Aminotransferase 15 U/L (0-31); Albumin Level 3.9 g/dL (3.5-5.0); Alkaline Phosphatase 74 U/L (39-117); Anion Gap 11 (12-20); Aspartate Amino Transferase 18 U/L (5-31); Bilirubin Total 0.2 mg/dL (0.0-1.0); Blood Urea Nitrogen 10 mg/dL (9-16); Calcium 8.6 mg/dL (8.4-10.2); Carbon Dioxide 24 mmol/L (22-29); Chloride 107 mmol/L (96-108); Estimated Glomerular Filt Rate > 60; Glucose Random 92 mg/dL (60-115); Sodium 138 mmol/L (135-145); Total Protein 7.1 g/dL (6.5-8.0)
[2024-07-20 11:14] LABS: Influenza A PCR NEGATIVE (Negative); Influenza B PCR NEGATIVE (Negative); Resp Syncy Virus RNA Qual PCR NEGATIVE (Negative); SARS COV2 PCR INHOUSE NEGATIVE (Negative)
== END 2024-07-20 09:15 | disposition home or self-care (01) ==
LOC: HO.HMGCLDS 09:14
PROVIDERS: Nurse Practitioner Family; PCP Family Medicine; Visit Provider Family Medicine
DX: Z00.00 Encounter for general adult medical examination without abnormal findings (principal); R82.90 Unspecified abnormal findings in urine; R71.8 Other abnormality of red blood cells; R74.8 Abnormal levels of other serum enzymes; J06.9 Acute upper respiratory infection, unspecified
CPT/HCPCS: 0241U; 36415; 80053; 81001; 85025; 87086

== ENCOUNTER 2024-07-24 10:24 | Outpatient (AMB) | payer OTHER, SELFPAY ==
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
== END 2024-07-24 10:37 | disposition home or self-care (01) ==
LOC: HO.HOP 10:24
PROVIDERS: PCP Family Medicine; Visit Provider Clinical Nurse Specialist Psychiatric/Mental Health
DX: F41.1 Generalized anxiety disorder (principal); F90.0 Attention-deficit hyperactivity disorder, predominantly inattentive type
CPT/HCPCS: 90792

== ENCOUNTER 2024-07-24 10:24 | Outpatient (REF) | payer OTHER, SELFPAY ==
--- NOTE | ~2024-07-24 | XR_ITS ---
CLINICAL HISTORY: R05 - Cough 2 view chest x-ray Comparison: 04/06/2018 Findings: The lungs are clear. Heart size is normal. No acute fracture. Postsurgical upper abdominal changes. IMPRESSION: 1. No acute findings. This document has been electronically signed by: My Coulter MD on 07/24/2024 10:58:21
== END 2024-07-24 10:25 | disposition home or self-care (01) ==
LOC: HO.XRAY 10:24
PROVIDERS: PCP Family Medicine; Referring Provider Nurse Practitioner Family; Visit Provider Clinical Nurse Specialist Psychiatric/Mental Health
DX: R05.9 Cough, unspecified (principal); R06.02 Shortness of breath; F41.1 Generalized anxiety disorder; F90.0 Attention-deficit hyperactivity disorder, predominantly inattentive type
CPT/HCPCS: 71046; 90792

== ENCOUNTER → 2024-07-24 10:32 | Outpatient (BNV) | payer OTHER, SELFPAY | PROVIDERS: PCP Family Medicine; Referring Provider Nurse Practitioner Family; Visit Provider Radiology Diagnostic Radiology | DX: R05.9 Cough, unspecified (principal) | CPT/HCPCS: 71046 ==

== ENCOUNTER 2024-08-01 10:11 | Outpatient (REF) | payer OTHER, SELFPAY ==
[2024-08-01 11:43] LABS: Iron 23 mcg/dL (30-160); Magnesium 2.1 mg/dL (1.6-2.6); Percent Iron Saturation 7 % (15-50); Total Iron Binding Capacity 318 mcg/dL (228-428); Unsaturated Iron Binding 295 ug/dL
[2024-08-01 11:51] LABS: Vitamin D 25-OH Total 26.3 ng/mL (>30)
[2024-08-01 11:58] LABS: Folate 11.4 ng/mL (> or = 4.0); Vitamin B12 399 pg/mL (200-900)
== END 2024-08-01 10:12 | disposition home or self-care (01) ==
LOC: HO.LAB 10:11
PROVIDERS: PCP Family Medicine; Visit Provider Clinical Nurse Specialist Psychiatric/Mental Health
DX: F41.1 Generalized anxiety disorder (principal); F90.0 Attention-deficit hyperactivity disorder, predominantly inattentive type
CPT/HCPCS: 36415; 82306; 82607; 82746; 83540; 83735

== ENCOUNTER 2024-08-14 14:19 | Outpatient (REF) | payer OTHER, SELFPAY ==
[2024-08-15 08:10] LABS: HBsAGNum1 0.25 S/CO (0.00-0.99); HIV AB/AG Nonreactive (Nonreactive); HIV Num 1 0.06 S/CO (0.00-0.99); Hepatitis B Surface Antigen Negative (Negative); ~HepC Num1 0.66 S/CO (0.00-0.79); ~Hepatitis C Antibody Nonreactive (Nonreactive)
[2024-08-15 08:28] LABS: Syphilis Screen Nonreactive (Nonreactive)
[2024-08-15 11:36] LABS: CT PCR NOT DETECTED (Not Detect.); NG PCR NOT DETECTED (Not Detect.)
[2024-08-15 13:43] LABS: Follicle Stimulating Hormone 8.2 mIU/mL
[2024-08-30 23:09] LABS: Estradiol Free 1.22 pg/mL; Estradiol, Ultrasensitive 59 pg/mL
== END 2024-08-14 14:20 | disposition home or self-care (01) ==
LOC: HO.WFDLDS 14:19
PROVIDERS: Visit Provider Student in an Organized Health Care Education/Training Program
DX: Z13.89 Encounter for screening for other disorder (principal)
CPT/HCPCS: 82670; 82681; 83001; 86780; 86803; 87340; 87389; 87491; 87591

== ENCOUNTER 2024-08-22 11:56 | Outpatient (AMB) | payer OTHER, SELFPAY ==
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
== END 2024-08-22 14:15 | disposition home or self-care (01) ==
LOC: HO.HOP 11:56
PROVIDERS: PCP Family Medicine; Visit Provider Clinical Nurse Specialist Psychiatric/Mental Health
DX: F41.1 Generalized anxiety disorder (principal); F90.0 Attention-deficit hyperactivity disorder, predominantly inattentive type; R00.2 Palpitations
CPT/HCPCS: 99214

== ENCOUNTER → 2024-08-23 09:07 | Outpatient (REF) | payer OTHER, SELFPAY ==
--- NOTE | 2024-08-23 09:11 | ECG_ITS ---
Test Reason : adhd Blood Pressure : */* mmHG Vent. Rate : 85 BPM Atrial Rate : 85 BPM P-R Int : 130 ms QRS Dur : 72 ms QT Int : 372 ms P-R-T Axes : 43 20 28 degrees QTcB Int : 442 ms Normal sinus rhythm Normal ECG When compared with ECG of 22-Jul-2017 08:42, No significant change was found Referred By: Mariaelena Godinez Electronically Signed By: Meliton Burns
== END ==
LOC: HO.CARD 09:07
PROVIDERS: PCP Family Medicine; Visit Provider Clinical Nurse Specialist Psychiatric/Mental Health
DX: R00.2 Palpitations (principal); F90.0 Attention-deficit hyperactivity disorder, predominantly inattentive type
CPT/HCPCS: 93005

== ENCOUNTER → 2024-08-23 09:11 | Outpatient (BNV) | payer OTHER, SELFPAY | PROVIDERS: PCP Family Medicine; Visit Provider Internal Medicine Cardiovascular Disease | DX: F90.9 Attention-deficit hyperactivity disorder, unspecified type (principal) | CPT/HCPCS: 93010 ==

== ENCOUNTER 2024-09-19 09:29 | Outpatient (AMB) | payer OTHER, SELFPAY ==
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
== END 2024-09-19 10:49 | disposition home or self-care (01) ==
LOC: HO.HOP 09:29
PROVIDERS: PCP Family Medicine; Visit Provider Clinical Nurse Specialist Psychiatric/Mental Health
DX: F41.1 Generalized anxiety disorder (principal); F90.0 Attention-deficit hyperactivity disorder, predominantly inattentive type
CPT/HCPCS: 90833; 99214

== ENCOUNTER → 2024-09-19 09:29 | Outpatient (BNVA) | payer OTHER, SELFPAY | PROVIDERS: PCP Family Medicine; Visit Provider Clinical Nurse Specialist Psychiatric/Mental Health | DX: F90.0 Attention-deficit hyperactivity disorder, predominantly inattentive type (principal); R00.2 Palpitations; F41.1 Generalized anxiety disorder ==

== ENCOUNTER 2024-10-17 16:05 | Outpatient (AMB) | payer OTHER, SELFPAY ==
--- NOTE | 2024-10-17 16:11 | MHC.OFFVISPS ---
Intake Intake Visit Reasons: f/u consultation Outsole Caser Required: No Allergies clindamycin [CLINDAMYCIN] Allergy (Severe, Verified 07/20/24 08:28) RASH Clindamycin HCl Allergy (Unknown, Verified 07/20/24 08:28) rash, full body rash SEASONAL ALLERGIES Allergy (Intermediate, Uncoded 07/20/24 08:28) RUNNY NOSE SNEEZING desolvable stitches Allergy (Mild, Uncoded 07/20/24 08:28) welts DISOLVABLE SUTURES Allergy (Mild, Uncoded 07/20/24 08:28) WELTS Enviromental allergies Allergy (Mild, Uncoded 07/20/24 08:28) runny nose, sneezing Medication List - Last Reconciled 10/17/24 by Mariaelena Godinez APRN alprazolam 0.5 mg PO DAILY PRN 1 month cholecalciferol (vitamin D3) 50 mcg PO DAILY 30 days ferrous fumarate 325 mg PO DAILY 30 days lisdexamfetamine (Vyvanse) 20 mg PO QAM loratadine (Claritin) 10 mg PO DAILY omeprazole magnesium 20 mg PO DAILY ondansetron HCl 4 mg PO Q8H PRN comb no.42-folic acid 1.[address] 1 tab PO DAILY progesterone micronized mg PO sertraline 200 mg (2 x 100 mg) PO DAILY valacyclovir 500 mg PO Q12H 14 days zolpidem 10 mg PO BEDTIME 1 month HPI- Psychiatric Chief Complaint: f/u consultation HPI Narrative: pt reports much improved; since starting Vyvanse her anxiety has decreased; she has not had to use the xanax often; she is sleeping better with ambien; no side effects reported; she denies SI or HI. PHQ9=6 and GAD7=5. Pt had EKG completed= reviewed Normal sinus rhythm normal ekg. Past Psychiatric History: treated outpat for anxiety and depression since age 15. trials of paxil, zoloft, wellbutrin (gave her tremors) celxa, and 2 trials of strattera. Subjective Subjective Subjective Medication Compliance: Yes Side effects from medications: No Review of Systems Medical Review of Systems: unchanged Mental Status Exam Mental Status Exam Patient Appearance: Well Grooomed Patient Orientation: Person, Place, Time and Situation Level of Consciousness: Awake and Appropriate Patient Behavior: Appropriate Mood Description: Calm and Happy Affect Description: Calm and Happy Patient Cognition Impaired: No Ability to Follow Directions: Good Speech Pattern: Clear and Appropriate Memory Description: Intact Hallucinations: None Delusions: Not Present Thought Process: Intact and Goal Oriented Thought Content: positive for Intact and positive for Goal Oriented Judgement: Good Assessment and Plan Assessment & Plan (1) LEÓN (generalized anxiety disorder): Status: Acute Code(s): F41.1 - Generalized anxiety disorder (2) ADHD (attention deficit hyperactivity disorder), inattentive type: Status: Acute Code(s): F90.0 - Attention-deficit hyperactivity disorder, predominantly inattentive type Plan continue meds per below return for follow up in 8 weeks Medications: Refilled alprazolam 0.5 mg PO DAILY 1 month PRN 30 tabs 3RF anxiety sertraline 200 mg (2 x 100 mg) PO DAILY 60 tabs 1RF zolpidem 10 mg PO BEDTIME 1 month 30 tabs 2RF lisdexamfetamine (Vyvanse) Partial Fill upon patient request. 20 mg PO QAM 30 caps 0RF Counseling and coordination of Care Pt. Self Management counseling: Maintenance-social rhythm, Mod caffeine/ETOH intake, Sleep hygiene, General coping skills and Problem solving Medication management counseling: Effectiveness, Side effects, Dosing range, Duration, Drug interaction and Adherence Diagnosis and Prognosis Counseling: Accuracy of diagnosis, Prognosis over time, Impact of diagnosis on life functions, Impact of family relationship, Problematic behaviors secondary to diagnosis and Adequacy of current interventions Details: I spent 35 minutes reviewing the record, seeing the patient and documenting in the medical record. Counseling provided to the patient/caregiver as outlined below. Addressed patient/caregiver concerns regarding current medication regime including effective adherence. Addressed patient/caregiver concerns regarding diagnosis and prognosis including accuracy of diagnosis, prognosis over time, impact of diagnosis. Addressed patient/caregiver concerns regarding impact of recent stressors. [facility] Medical History (Updated 08/22/24 @ 12:25 by Mariaelena Godinez APRN) Acute respiratory disease No pertinent past medical history Surgical History S/P dilatation and curettage History of gastric surgery History of cholecystectomy Family History Father Depression Multiple sclerosis Alcoholism Mother High cholesterol ADHD Vitamin D deficiency Other Mental health disorder Substance use disorder Social History (Reviewed 10/27/23 @ 15:05 by Christiane Rai [facility] [address]) Housing: House Alcohol intake: current Alcohol intake frequency: holidays/special occasions only Patient Tobacco Use Status: Never used Tobacco e-Cigarette/Vaping Use: Never Used Second Hand Smoke Exposure: No service: No Current occupational status: employed 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 she is close to bio sister. father was functioning ETOHIC, very chaotic, took all their money home was foreclosed and parents when pt age 20. Substance History: none Trauma History: chaotic childhood/parental substance abuse Coding Level of Care Code Est Pt Level 4 (38823) Diagnoses LEÓN (generalized anxiety disorder) F41.1 ADHD (attention deficit hyperactivity disorder), inattentive type F90.0
== END 2024-10-17 16:27 | disposition home or self-care (01) ==
LOC: HO.HOP 16:05
PROVIDERS: PCP Family Medicine; Visit Provider Clinical Nurse Specialist Psychiatric/Mental Health
DX: F41.1 Generalized anxiety disorder (principal); F90.0 Attention-deficit hyperactivity disorder, predominantly inattentive type
CPT/HCPCS: 99214

== ENCOUNTER 2024-11-27 06:24 | Emergency (ER) | payer OTHER, SELFPAY ==
[2024-11-27 06:35] VITALS: BP 121/53; PULSE 86; RESP 16; TEMP 36.6; O2SAT 98; BMI 38.4
--- NOTE | 2024-11-27 06:56 | ED_ITS ---
HPI - General Adult General Chief complaint: Urogenital-Female Stated complaint: stuck tampon Time Seen by Provider: 11/27/24 06:56 History of Present Illness ED Provider: Fiona ALEJANDRO narrative: The patient is a 39-year-old woman who is ordinarily healthy. She is currently finishing her period. She says that she put in a tampon last 3 days ago. She says that yesterday she realized she was not sure if she had removed the tampon. She has become more and more concerned that she may have a retained tampon and ultimately decided to come to the emergency room for evaluation. She does not feel sick otherwise. She may have some mild abdominal cramping that could be residual menstrual cramping. She has no vaginal discharge. She is not concerned about sexually transmitted diseases or . No fever, sweats, chills. No nausea or vomiting. Related Data Home Medications ?Medication ?Instructions ?Recorded ?Confirmed loratadine 10 mg tablet (Claritin) 10 mg PO DAILY 10/2510/17/24 omeprazole magnesium 20 mg 20 mg PO DAILY 09/09/20 tablet,delayed release vitamins no.42-folic acid 1 tab PO DAILY 10/0610/17/24 1.4 mg chew tablet,IR - DR,biphase ondansetron HCl 4 mg tablet 4 mg PO Q8H PRN 06/05/24 0 10/17/24 progesterone micronized 200 mg mg PO 06/05/24 10/17/24 capsule Previous Rx's ?Medication ?Instructions ?Recorded valacyclovir 500 mg tablet 500 mg PO Q12H 14 days #28 tabs 06/05/24 cholecalciferol (vitamin D3) 50 50 mcg PO DAILY 30 day s #30 caps 08/07/24 mcg (2,000 unit) capsule ferrous fumarate 325 mg (106 mg 325 mg PO DAILY 30 day s #30 tabs 08/07/24 iron) tablet alprazolam 0.5 mg tablet 0.5 mg PO DAILY PRN anxiety 1 10/17/24 month #30 tabs sertraline 100 mg tablet 200 mg (2 x 100 mg) PO DAILY #60 10/17/24 tabs zolpidem 10 mg tablet 10 mg PO BEDTIME 1 month #30 tabs 10/17/24 lisdexamfetamine 20 mg capsule 20 mg PO QAM #30 caps 0 11/21/24 (Vyvanse) Allergies Allergy/AdvReac Type Severity Reaction Status Date / Time clindamycin (CLINDAMYCIN) Allergy Severe RASH Verified 11/27/24 06:58 Clindamycin HCl Allergy Unknown rash, full Verified 11/27/24 06:58 body rash SEASONAL ALLERGIES Allergy Intermediate RUNNY NOSE Uncoded 07/20/24 08:28 SNEEZING desolvable stitches Allergy Mild welts Uncoded 07/20/24 08:28 DISOLVABLE SUTURES Allergy Mild WELTS Uncoded 07/20/24 08:28 Enviromental allergies Allergy Mild runny Uncoded 07/20/24 08:28 nose, sneezing Review of Systems Review of Systems: Yes all other systems are reviewed and are negative [facility] Past Medical History Medical History (Updated 11/27/24 @ 07:13 by Karl Jaimes MD) Acute respiratory disease No pertinent past medical history Surgical History S/P dilatation and curettage History of gastric surgery History of cholecystectomy Family History Family History Father Depression Multiple sclerosis Alcoholism Mother High cholesterol ADHD Vitamin D deficiency Other Mental health disorder Substance use disorder Social History Social History Housing: House Alcohol intake: current Alcohol intake frequency: holidays/special occasions only Patient Tobacco Use Status: Never used Tobacco Smoked in Last 30 Days: No e-Cigarette/Vaping Use: Never Used Second Hand Smoke Exposure: No Use of substances other than those prescribed or required for medical reasons: No Do you have a plan to hurt others: No Plan Patient : No service: No Current occupational status: employed 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 Orientation/consciousness: patient oriented x3 HENMT Other: The face is symmetrical. ?Mucous membranes moist. Eyes Other: Pupils are round equal, conjunctivae are clear, extraocular movements intact Neck Neck: Yes normal visual inspection and Yes full ROM Resp Effort & Inspection: normal respiratory effort Auscultation: clear to auscultation bilaterally Cardio Rate: regular rate Rhythm: regular rhythm Heart sounds: S1 normal heart sound present and S2 normal heart sound present GI Other: Abdomen is soft and nontender Other: Normal external genitalia. On speculum exam there was a small amount of old looking blood in the vaginal vault. Cervix. Normal otherwise. No foreign body seen in the vaginal vault. No vaginal bleeding. On bimanual exam I did not appreciate any palpated foreign body. No cervical motion tenderness or other tenderness on bimanual exam. Skin Other: The skin is dry and unremarkable Neuro General: patient oriented x3, tone normal, moves all extremities, no focal motor deficits and CN's II-XI intact bilaterally Extrem Other: There is no calf swelling or tenderness. No asymmetry. No peripheral edema. Medical Decision Making Medical Decision Making MDM Narrative: The patient is here for concern about a possible retained tampon. She says she last put a tampon in about 3 days ago. She says she is at the end of her period. She is concerned because she can not remember removing her tampon and ultimately came to the emergency room for evaluation of this question. On exam I do not find a tampon either by speculum exam or bimanual exam with palpation. The patient was reassured. She should return if she develops any vaginal symptoms should Discharge Plan Discharge Clinical Impression: Retained tampon not found on examination Patient Disposition: Home, Self-Care Additional Instructions: I do not believe you have a retained tampon. I think you are simply at the tail end of your period at this point. Please follow up with your regular truck car and bus cleaner if you have any ongoing concerns. Additionally you may try contacting [place] [facility] [place] to try to establish a new truck car and bus cleaner here at [facility]. If you develop any pelvic pain or vaginal discharge or fever please return to the emergency room for additional evaluation. Prescriptions: No Action cholecalciferol (vitamin D3) 50 mcg (2,000 unit) capsule 50 mcg PO DAILY 30 Days Qty: 30 3RF ferrous fumarate 325 mg (106 mg iron) tablet 325 mg PO DAILY 30 Days Qty: 30 3RF lisdexamfetamine [Vyvanse] 20 mg capsule 20 mg PO QAM Qty: 30 0RF Rx Instructions: Partial Fill upon patient request. loratadine [Claritin] 10 mg tablet 10 mg PO DAILY omeprazole magnesium 20 mg tablet,delayed release (DR/EC) 20 mg PO DAILY comb no.42-folic acid 1.4 mg tablet,chew,IR - DR,biphase 1 tab PO DAILY progesterone micronized 200 mg capsule PO ondansetron HCl 4 mg tablet 4 mg PO Q8H PRN valacyclovir 500 mg tablet 500 mg PO Q12H 14 Days Qty: 28 3RF alprazolam 0.5 mg tablet 0.5 mg PO DAILY PRN (Reason: anxiety) 30 Days Qty: 30 3RF sertraline 100 mg tablet 200 mg PO DAILY Qty: 60 1RF zolpidem 10 mg tablet 10 mg PO BEDTIME 30 Days Qty: 30 2RF Referrals: [facility] [place] [place] [facility] [place] Group] Rajesh Byrd MD [Primary Care Provider, Internal Medicine] Print Language: Azeri
--- NOTE | 2024-11-27 07:31 | PC.NURSE ---
this nurse assisted provider, internal exam performed by provider.
[2024-11-27 07:32] VITALS: BP 120/56; PULSE 82; RESP 16; TEMP 36.7; O2SAT 98
== END 2024-11-27 07:32 | disposition home or self-care (01) ==
LOC: HO.ED 07:17
PROVIDERS: Emergency Provider Emergency Medicine; PCP Family Medicine
DX: T19.2XXA Foreign body in vulva and vagina, initial encounter (principal); R25.2 Cramp and spasm; W44.8XXA Other foreign body entering into or through a natural orifice, initial encounter; Z79.899 Other long term (current) drug therapy; Z98.84 Bariatric surgery status
CPT/HCPCS: 99283

== ENCOUNTER 2024-11-30 10:03 | Outpatient (AMB) | payer OTHER, SELFPAY ==
[2024-11-30 10:15] VITALS: BP 102/76; PULSE 89; TEMP 36.6; O2SAT 98; BMI 38.8
--- NOTE | 2024-11-30 10:15 | MHC.OFFWIV ---
Intake Vital Signs 11/30/24 10:15 Height 4 ft 11 in Weight 192 lb BMI 38.8 BP 102/76 Blood Pressure Location Lt brachial Position Sitting Pulse 89 Pulse Source Pulse Oximeter Temp 98 F Pulse Oximetry (%) 98 Oxygen Delivery Method Room Air Intake Visit Reasons: EP Sore throat, exposed to Covid Intake Note: pt presents with sore throat, seldom coughing with little production. recent exposure to covid 3 days ago. headache Patient Tobacco Use Status: Never used Tobacco Allergies clindamycin (CLINDAMYCIN) Allergy (Severe, Verified 11/30/24 10:16) RASH Clindamycin HCl Allergy (Unknown, Verified 11/30/24 10:16) rash, full body rash SEASONAL ALLERGIES Allergy (Intermediate, Uncoded 07/20/24 08:28) RUNNY NOSE SNEEZING desolvable stitches Allergy (Mild, Uncoded 07/20/24 08:28) welts DISOLVABLE SUTURES Allergy (Mild, Uncoded 07/20/24 08:28) WELTS Enviromental allergies Allergy (Mild, Uncoded 07/20/24 08:28) runny nose, sneezing Do you need a note to return to daycare/school/sports/work: No HPI HPI Comments History of Present Illness Details History - The patient is a 39-year-old female presenting with exposure to COVID-19. 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 - The patient reports mild headache and sore throat starting the night before the visit. - No fever, chest pain, or congestion reported. - The patient has been vaccinated against COVID-19 and has had COVID-19 three times. - The patient has a history of pneumonia and pyelonephritis but does not typically experience fever with illness. - She has been eating and drinking. 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 - She denies fever, chills, body aches, cough, ear pain, congestion, abd pain, n/v/d, rashes, dizziness, or weakness. Physical Exam General: Cooperative, healthy appearing, comfortable and no acute distress Orientation/consciousness: Patient oriented x3 Limitations: No limitations Head: Normal to inspection Ears: Hearing grossly normal bilaterally, external ears normal and TM's normal bilaterally Nose: Normal external nose present, normal nares present, and no nasal discharge present. Face and sinus: Sinuses nontender to palpation. Mouth: Normal oral and palatal mucosa present and moist mucous membranes noted. Throat: Uvula is midline. Posterior oropharynx with erythema and no exudates. Neck: Normal visual inspection, full ROM. No lymphadenopathy noted. Respiratory: Clear to auscultation bilaterally. Normal respiratory effort, able to speak in complete sentences. No respiratory distress, not tachypneic, no tripod positioning and no use of accessory muscles. Cardiovascular: Regular rate and rhythm. Heart rate in the 90s, slightly elevated. Normal S1 and S2 Skin: No rashes or lesions noted. Patient was informed and verbally consented to the use of an ambient scribe for clinic note documentation during this visit [facility] Medical History (Updated 11/28/24 @ 00:01 by Pete King) Acute respiratory disease No pertinent past medical history Surgical History S/P dilatation and curettage History of gastric surgery History of cholecystectomy Family History Father Depression Multiple sclerosis Alcoholism Mother High cholesterol ADHD Vitamin D deficiency Other Mental health disorder Substance use disorder Social History Housing: House Alcohol intake: current Alcohol intake frequency: holidays/special occasions only Patient Tobacco Use Status: Never used Tobacco e-Cigarette/Vaping Use: Never Used Second Hand Smoke Exposure: No service: No Current occupational status: employed 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 occupational exposures/hazards: No Cognitive needs: No Hearing needs: No Vision needs: No Review of Systems Const All systems reviewed & are unremarkable except as noted in HPI and below Physical Exam Vital Signs: Last Vital Signs Temp 98 F 11/30/24 10:15 Pulse 89 11/30/24 10:15 BP 102/76 11/30/24 10:15 Pulse Ox 98 11/30/24 10:15 Oxygen Delivery Method Room Air 11/30/24 10:15 BMI result Body Mass Index 38.8 Results AMB Rapid Strep AMB Rapid Strep Negative Last Edit by Kirsten Colin MA on 11/30/24 11:15 Assessment & Plan Assessment & Plan (1) Sore throat (viral): Code(s): J02.8 - Acute pharyngitis due to other specified organisms; B97.89 - Other viral agents as the cause of diseases classified elsewhere Plan Most likely viral vs strep vs covid Rapid strep is negative in the office Plan - will order covid panel in the office - Advise patient to perform saltwater gargles and take Tylenol or Motrin for symptom relief. - Encourage fluid intake and monitor for fever development. - Patient to be informed of test results via patient portal. - follow up with PCP Orders: Orders SARS-CoV2/FLU/RSV Today R09.89 - Other specified symptoms and signs involving the circulatory and respiratory systems AMB Rapid Strep Screen Today Z13.9 - Encounter for screening, unspecified Coding Level of Care Code Est Pt Level 3 (65508) Diagnoses Sore throat (viral) J02.8; B97.89
== END 2024-11-30 11:19 | disposition home or self-care (01) ==
PROVIDERS: PCP Family Medicine; Visit Provider Physician Assistant Medical
DX: J02.9 Acute pharyngitis, unspecified (principal)

== ENCOUNTER 2024-11-30 10:03 | Outpatient (REF) | payer OTHER, SELFPAY ==
[2024-11-30 13:57] LABS: Influenza A PCR NEGATIVE (Negative); Influenza B PCR NEGATIVE (Negative); Resp Syncy Virus RNA Qual PCR NEGATIVE (Negative); SARS COV2 PCR INHOUSE NEGATIVE (Negative)
== END 2024-11-30 10:04 | disposition home or self-care (01) ==
LOC: HO.LNP 10:03
PROVIDERS: PCP Family Medicine; Visit Provider Physician Assistant Medical
DX: J02.8 Acute pharyngitis due to other specified organisms (principal); B97.89 Other viral agents as the cause of diseases classified elsewhere; R09.89 Other specified symptoms and signs involving the circulatory and respiratory systems
CPT/HCPCS: 0241U; 87880

== ENCOUNTER 2024-12-12 10:12 | Outpatient (AMB) | payer OTHER, SELFPAY ==
--- NOTE | 2024-12-12 09:47 | A.OFFPSYCH_ITS ---
Intake Intake Visit Reasons: f/u consultation Allergies clindamycin (CLINDAMYCIN) Allergy (Severe, Verified 11/30/24 10:16) RASH Clindamycin HCl Allergy (Unknown, Verified 11/30/24 10:16) rash, full body rash SEASONAL ALLERGIES Allergy (Intermediate, Uncoded 07/20/24 08:28) RUNNY NOSE SNEEZING desolvable stitches Allergy (Mild, Uncoded 07/20/24 08:28) welts DISOLVABLE SUTURES Allergy (Mild, Uncoded 07/20/24 08:28) WELTS Enviromental allergies Allergy (Mild, Uncoded 07/20/24 08:28) runny nose, sneezing Medication List - Last Reconciled 12/12/24 by Mariaelena Godinez APRN alprazolam 0.5 mg PO DAILY PRN 1 month cholecalciferol (vitamin D3) 50 mcg PO DAILY 30 days ferrous fumarate 325 mg PO DAILY 30 days lisdexamfetamine (Vyvanse) 20 mg PO QAM loratadine (Claritin) 10 mg PO DAILY omeprazole magnesium 20 mg PO DAILY ondansetron HCl 4 mg PO Q8H PRN comb no.42-folic acid 1.[address] 1 tab PO DAILY sertraline 200 mg (2 x 100 mg) PO DAILY valacyclovir 500 mg PO Q12H 14 days zolpidem 10 mg PO BEDTIME 1 month HPI- Psychiatric Chief Complaint: f/u consultation HPI Narrative: pt seen via telehralth at her request due to shingles diagnosis. She is seen for follow up of LEÓN and ADHD. Pt reports she still feels benefit from Vyvanse 20mg daily. She reports her anxiety is increased since last visit due to worrying about her mother who has to move and she feels obligation to help her; she also recently had to euthanize her dog whom she has cared for for 14 years. she is sleeping better with ambien; no side effects reported; she denies SI or HI. Past Psychiatric History: treated outpat for anxiety and depression since age 15. trials of paxil, zoloft, wellbutrin (gave her tremors) celxa, and 2 trials of strattera. Subjective Subjective Subjective Medication Compliance: Yes Side effects from medications: No Review of Systems Medical Review of Systems: unchanged Mental Status Exam Mental Status Exam Patient Appearance: Well Grooomed Patient Orientation: Person, Place, Time and Situation Level of Consciousness: Awake and Appropriate Patient Behavior: Appropriate Mood Description: Calm and Happy Affect Description: Calm and Happy Patient Cognition Impaired: No Ability to Follow Directions: Good Speech Pattern: Clear and Appropriate Memory Description: Intact Hallucinations: None Delusions: Not Present Thought Process: Intact and Goal Oriented Thought Content: positive for Intact and positive for Goal Oriented Judgement: Good Telehealth Telehealth Telehealth Platform: Other (please specify) ([employer]) Location of provider rendering services: practice address Location of patient: address on file Patient Identification confirmed using: Name, : Yes Telehealth method: video Patient verbally consented to treatment: Yes Patient verbally consented to billing insurance company: Yes Patient informed of any privacy concerns related to visit: Yes Minutes spent on Phone/Video with Pt.: 29 Assessment and Plan Assessment & Plan (1) LEÓN (generalized anxiety disorder): Status: Acute Code(s): F41.1 - Generalized anxiety disorder (2) ADHD (attention deficit hyperactivity disorder), inattentive type: Status: Acute Code(s): F90.0 - Attention-deficit hyperactivity disorder, predominantly inattentive type Plan continue meds per below return for follow up in 8 weeks Medications: Refilled lisdexamfetamine (Vyvanse) Partial Fill upon patient request. 20 mg PO QAM 30 caps 0RF sertraline 200 mg (2 x 100 mg) PO DAILY 60 tabs 1RF zolpidem 10 mg PO BEDTIME 30 tabs 2RF 1 month alprazolam 0.5 mg PO DAILY PRN 30 tabs 3RF anxiety 1 month Counseling and coordination of Care Pt. Self Management counseling: Maintenance-social rhythm, Mod caffeine/ETOH intake, Sleep hygiene, General coping skills and Problem solving Medication management counseling: Effectiveness, Side effects, Dosing range, Duration, Drug interaction and Adherence Diagnosis and Prognosis Counseling: Accuracy of diagnosis, Prognosis over time, Impact of diagnosis on life functions, Impact of family relationship, Problematic behaviors secondary to diagnosis and Adequacy of current interventions Details: I spent 35 minutes reviewing the record, seeing the patient and documenting in the medical record. Counseling provided to the patient/caregiver as outlined below. Addressed patient/caregiver concerns regarding current medication regime including effective adherence. Addressed patient/caregiver concerns regarding diagnosis and prognosis including accuracy of diagnosis, prognosis over time, impact of diagnosis. Addressed patient/caregiver concerns regarding impact of recent stressors. [facility] Medical History (Updated 11/28/24 @ 00:01 by Pete King) Acute respiratory disease No pertinent past medical history Surgical History S/P dilatation and curettage History of gastric surgery History of cholecystectomy Family History Father Depression Multiple sclerosis Alcoholism Mother High cholesterol ADHD Vitamin D deficiency Other Mental health disorder Substance use disorder Social History Housing: House Alcohol intake: current Alcohol intake frequency: holidays/special occasions only Patient Tobacco Use Status: Never used Tobacco e-Cigarette/Vaping Use: Never Used Second Hand Smoke Exposure: No service: No Current occupational status: employed 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 she is close to bio sister. father was functioning ETOHIC, very chaotic, took all their money home was foreclosed and parents when pt age 20. Substance History: none Trauma History: chaotic childhood/parental substance abuse Coding Level of Care Code Tele Est Pt Level 4 (94498) Diagnoses LEÓN (generalized anxiety disorder) F41.1 ADHD (attention deficit hyperactivity disorder), inattentive type F90.0
== END 2024-12-12 10:14 | disposition home or self-care (01) ==
LOC: HO.HOP 10:13
PROVIDERS: PCP Family Medicine; Visit Provider Clinical Nurse Specialist Psychiatric/Mental Health
DX: F41.1 Generalized anxiety disorder (principal); F90.0 Attention-deficit hyperactivity disorder, predominantly inattentive type
CPT/HCPCS: 99214

== ENCOUNTER 2025-01-02 14:52 | Outpatient (AMB) | payer OTHER, SELFPAY ==
--- NOTE | 2025-01-02 14:54 | A.OFFVIS_ITS ---
Vital Signs 01/02/25 15:01 Height 4 ft 11 in Weight 190 lb BMI 38.4 Intake Visit Reasons: endometrosis Intake Note: Patient has concerns of fertility issues has 2 missed miscarriages , and suspicions of Endometriosis has not been diagnosed. Electric Stove Installer: Electric Stove Installer Present (Jane ) Accompanied by: Self / Same As Patient Allergies clindamycin (CLINDAMYCIN) Allergy (Severe, Verified 01/02/25 15:00) RASH Clindamycin HCl Allergy (Unknown, Verified 01/02/25 15:00) rash, full body rash SEASONAL ALLERGIES Allergy (Intermediate, Uncoded 07/20/24 08:28) RUNNY NOSE SNEEZING desolvable stitches Allergy (Mild, Uncoded 07/20/24 08:28) welts DISOLVABLE SUTURES Allergy (Mild, Uncoded 07/20/24 08:28) WELTS Enviromental allergies Allergy (Mild, Uncoded 07/20/24 08:28) runny nose, sneezing Is last menstrual period known: Yes Last menstrual period: 12/19/24 Post menopausal: No Patient : No HPI Comments Details: Presenting to discuss infertility and possible endometriosis. The patient has been attempting to get and had 2 first-trimester losses in 09/27 and 10/28, has been under infertility care at [facility], was treated with Clomid and developed pelvic pain and chest pain few months ago possibly related to potential endometriosis. All infertility workup was normal except for a low AMH ON LICENSE OF [facility] Medical History (Updated 01/02/25 @ 15:34 by Armando Blancas MD) Acute respiratory disease No pertinent past medical history Surgical History (Updated 01/02/25 @ 15:44 by Armando Blancas MD) S/P dilatation and curettage History of gastric surgery History of cholecystectomy Family History Father Depression Multiple sclerosis Alcoholism Mother High cholesterol ADHD Vitamin D deficiency Other Mental health disorder Substance use disorder Social History Housing: House Alcohol intake: current Alcohol intake frequency: holidays/special occasions only Patient Tobacco Use Status: Never used Tobacco e-Cigarette/Vaping Use: Never Used Second Hand Smoke Exposure: No service: No Current occupational status: employed 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 occupational exposures/hazards: No Cognitive needs: No Hearing needs: No Vision needs: No Female Reproductive History Menstrual Age of Menarche: 13 Duration of menses: 6-7 days Date of last menstrual period: 12/19/24 control method: none Total pregnancies: 2 Ab spontaneous: 2 Date of last pap smear: 02/15/24 History of abnormal pap smear: Yes (HPV ) Review of Systems Const All systems reviewed & are unremarkable except as noted in HPI and below Reports as per HPI and Reports no additional complaints GI Reports no additional complaints Reports no additional complaints Physical Exam Vital Signs: BMI result Body Mass Index 38.4 Assessment & Plan Assessment & Plan (1) Infertility, female: Code(s): N97.9 - Female infertility, unspecified Category: Medical Plan: Discussed with the patient endometriosis could be a clinical diagnosis or via diagnostic laparoscopy . Fulguration of endometriotic implants as it treatment is a superior options for infertility related to endometriosis rather than medical treatment. Recommended the patient to schedule an appointment with [facility] for the next step in her infertility management in effort to prevent any treatment delay since the patient is AMH is low and time is running against her chance of conception. All questions answered, the patient verbalized understanding Coding Level of Care Code New Pt Level 3 (15540) Diagnoses Infertility, female N97.9
[2025-01-02 15:01] VITALS: BMI 38.4
--- OUTSIDE RECORDS SUMMARY | 2025-01-02 15:43 | XMS_ITS | Encounter Summary ---
Author Organization [facility] Address [address] [place] [phone] Phone Care Team Providers Care Tone Regulator Name Role Phone Rajesh Byrd MD Primary Care Provider Encounter Details Date Type Department Care Team (Late st Contact Info) Description 08/31/2022 Transcribe Orders [facility] [address] [place] [id number] Jamshid Escoto MD Social History Tobacco Use Types Packs/Day Years Used Date Smoking Tobacco: Never Smokeless Tobacco: Never Alcohol Use Standard Drinks/Week Comments Not Currently 0 (1 standard drink = 0.6 oz pur e alcohol) socially Comments Yes Sex and Gender Information Value Date Recorded [...] on file documented as of this encounter Visit Diagnoses Not on filedocumented in this encounter Care Teams Tone Regulator Relationship Specialty Start Date End Date Rajesh Byrd MD [address] [place] [address] PCP - General 03/07/20 documented as of this encounter Additional Source Comments The information contained in this document represents components of the legal health record. It is not the complete legal health record.[facility]
== END 2025-01-02 15:33 | disposition home or self-care (01) ==
LOC: HO.HWS 14:53
PROVIDERS: PCP Family Medicine; Visit Provider Obstetrics & Gynecology
DX: N97.9 Female infertility, unspecified (principal)
CPT/HCPCS: 99203

== ENCOUNTER 2025-02-16 11:32 | Outpatient (REF) | payer OTHER, SELFPAY ==
[2025-02-16 14:28] LABS: MANUAL DIFF FLAG NO
[2025-02-16 14:32] LABS: Hematocrit 43.6 % (37.0-47.0); Hemoglobin 14.6 g/dl (12.0-16.0); Imm Gran Abs Auto 0.02 X10*3/uL (0.00-0.03); Imm Gran Pct Auto 0.3 % (0.0-0.4); Lymphocytes Absolute Auto 1.5 X10*3/uL (1.2-4.9); Mean Corpuscular HGB Conc 33.5 g/dl (31.0-35.0); Mean Corpuscular Hemoglobin 27.3 pg (27.0-33.0); Mean Corpuscular Volume 81.5 fL (80.0-98.0); NRBC Abs Auto 0.000 X10*3/uL (0.0-0.012); NRBC Pct Auto 0.0 /100WBC (0.0-0.2); Platelet Count 306 X10*3/uL (160-400); Red Blood Count 5.35 X10*6/uL (4.20-5.50); White Blood Count 6.8 X10*3/uL (4.8-10.8)
[2025-02-16 14:39] LABS: Appearance Urine Clear; Glucose Urine UA Negative (Negative); PH 7.0 (5.0-9.0); Specific Gravity - Urine 1.010 (1.005-1.025)
[2025-02-16 15:10] LABS: Alanine Aminotransferase 19 U/L (0-31); Albumin Level 4.3 g/dL (3.5-5.0); Alkaline Phosphatase 93 U/L (39-117); Anion Gap 11 (12-20); Aspartate Amino Transferase 24 U/L (5-31); Blood Urea Nitrogen 8 mg/dL (9-16); Calcium 9.0 mg/dL (8.4-10.2); Carbon Dioxide 25 mmol/L (22-29); Chloride 107 mmol/L (96-108); Cholesterol 259 mg/dL (<200); Estimated Glomerular Filt Rate > 60; HDL Cholesterol 73 mg/dL (>40); Potassium 4.1 mmol/L (3.3-5.1); Sodium 139 mmol/L (135-145); Total Protein 7.2 g/dL (6.5-8.0); Triglycerides 81 mg/dL (<150)
== END 2025-02-16 11:33 | disposition home or self-care (01) ==
LOC: HO.WFDLDS 11:32
PROVIDERS: Visit Provider Family Medicine
DX: Z00.00 Encounter for general adult medical examination without abnormal findings (principal); I10 Essential (primary) hypertension; E78.5 Hyperlipidemia, unspecified; E55.9 Vitamin D deficiency, unspecified
CPT/HCPCS: 36415; 80053; 80061; 81003; 82043; 82306; 82570; 83721; 84443; 85025

== ENCOUNTER 2025-02-22 12:04 | Outpatient (AMB) | payer OTHER, SELFPAY ==
--- OUTSIDE RECORDS SUMMARY | 2021-06-27 14:18 | XMS_ITS | Encounter Summary ---
Author Organization [facility] Address [facility] [address] [place] [phone] Phone Care Team Providers Care Electroslag Welding Machine Operator Name Role Phone Rajesh Byrd MD Primary Care Provider Encounter Details Date Type Department Care Team (Late st Contact Info) Description 06/27/2021 1:18 PM [facility] Hospital Encounter [facility] [address] [place] [phone] Roxanne Akhtar FNP [address] [place] [phone] [email or web address] [place] Social History Tobacco Use Types Packs/Day Years [...] PM EDT Ashley Nowak nd, RN * [place] Suicide Severity Rating Scale (Screener/Recent Self-Report) Question Answer Date of Assessment Author 2. Non-Specific Active Suicidal Thoughts (Past 1 Month) No 09/15/2022 12:00 PM EDT Lanette Baekr RN documented as of this encounter Plan [...] abdomen. IMPRESSION: No acute abnormality. Roxanne Akhtar PAINT MAKER IMG XR CHEST Final Resul t documented in this encounter Visit Diagnoses Not on filedocumented in this encounter Additional Health Concerns Infection Onset Date Last Indicated Resolved Time COVID-19 06/17/2021 06/17/2021 07/08/2021 1:22 AM EST documented as of this encounter Care Teams Electroslag Welding Machine Operator Relationship Specialty Start Date End Date Rajesh Byrd MD [address] [place] [address] PCP - General 03/07/20 documented as of this encounter Additional Source Comments The information contained in this document represents components of the legal health record. It is not the complete legal health record.[facility]
--- NOTE | 2025-02-22 11:29 | MHC.OFFVISPS ---
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: No Allergies clindamycin (CLINDAMYCIN) Allergy (Severe, Verified 05/28/25 10:04) RASH Clindamycin HCl Allergy (Unknown, Verified 05/28/25 10:04) rash, full body rash SEASONAL ALLERGIES Allergy (Intermediate, Uncoded 05/28/25 10:04) RUNNY NOSE SNEEZING desolvable stitches Allergy (Mild, Uncoded 05/28/25 10:04) welts DISOLVABLE SUTURES Allergy (Mild, Uncoded 05/28/25 10:04) WELTS Enviromental allergies Allergy (Mild, Uncoded 05/28/25 10:04) runny nose, sneezing Medication List - Last Reconciled 02/22/25 by Mariaelena Godinez APRN alprazolam 0.5 mg PO DAILY PRN 1 month cholecalciferol (vitamin D3) 50 mcg PO DAILY 30 days ferrous fumarate 325 mg PO DAILY 30 days lisdexamfetamine (Vyvanse) 20 mg PO QAM loratadine (Claritin) 10 mg PO DAILY omeprazole magnesium 20 mg PO DAILY ondansetron HCl 4 mg PO Q8H PRN vits no.42-folic acid 1.[address] 1 tab PO DAILY sertraline 200 mg (2 x 100 mg) PO DAILY valacyclovir 500 mg PO Q12H 14 days zolpidem 10 mg PO BEDTIME 1 month HPI- Psychiatric Chief Complaint: follow up HPI Narrative: pt seen via telehealth. She is seen for follow up of LEÓN and ADHD. Pt reports she still feels benefit from Vyvanse 20mg daily but more trouble with attention and focus now than when first started. She reports her anxiety is increased since last visit due to learning she has endometriosis and adenomyosis. She reports this explains her miscarriages and requires treatment; she is coming to termss with this news. she is sleeping better with ambien; no side effects reported; she denies SI or HI. Past Psychiatric History: treated outpat for anxiety and depression since age 15. trials of paxil, zoloft, wellbutrin (gave her tremors) celxa, and 2 trials of strattera. Subjective Subjective Subjective Medication Compliance: Yes Side effects from medications: No Review of Systems Medical Review of Systems: unchanged Mental Status Exam Mental Status Exam Patient Appearance: Well Grooomed Patient Orientation: Person, Place, Time and Situation Level of Consciousness: Awake and Appropriate Patient Behavior: Appropriate Mood Description: Calm and Sad Affect Description: Calm and Sad Patient Cognition Impaired: No Ability to Follow Directions: Good Speech Pattern: Clear and Appropriate Memory Description: Intact Hallucinations: None Delusions: Not Present Thought Process: Intact and Goal Oriented Thought Content: positive for Intact and positive for Goal Oriented Judgement: Good Telehealth Telehealth Telehealth Platform: Other (please specify) ([employer]) Location of provider rendering services: practice address Location of patient: address on file Patient Identification confirmed using: Name, : Yes Telehealth method: video Patient verbally consented to treatment: Yes Patient verbally consented to billing insurance company: Yes Patient informed of any privacy concerns related to visit: Yes Minutes spent on Phone/Video with Pt.: 29 Assessment and Plan Assessment & Plan (1) LEÓN (generalized anxiety disorder): Status: Acute Code(s): F41.1 - Generalized anxiety disorder (2) ADHD (attention deficit hyperactivity disorder), inattentive type: Status: Acute Code(s): F90.0 - Attention-deficit hyperactivity disorder, predominantly inattentive type Plan continue meds per below return for follow up in 8 weeks Medications: New lisdexamfetamine (Vyvanse) Partial Fill upon patient request. 30 mg PO DAILY 30 caps 0RF F90.0 - Attention-deficit hyperactivity disorder, predominantly inattentive type Refilled sertraline 200 mg (2 x 100 mg) PO DAILY 60 tabs 1RF zolpidem 10 mg PO BEDTIME 30 tabs 2RF 1 month alprazolam 0.5 mg PO DAILY PRN 30 tabs 3RF anxiety 1 month Discontinued lisdexamfetamine Partial Fill upon patient request. Discontinued Reason: Doctor's Order 20 mg PO QAM 30 caps 0RF Counseling and coordination of Care Pt. Self Management counseling: Maintenance-social rhythm, Mod caffeine/ETOH intake, Sleep hygiene, General coping skills and Problem solving Medication management counseling: Effectiveness, Side effects, Dosing range, Duration, Drug interaction and Adherence Diagnosis and Prognosis Counseling: Accuracy of diagnosis, Prognosis over time, Impact of diagnosis on life functions, Impact of family relationship, Problematic behaviors secondary to diagnosis and Adequacy of current interventions Details: I spent [] minutes reviewing the record, seeing the patient and documenting in the medical record. Counseling provided to the patient/caregiver as outlined below. Addressed patient/caregiver concerns regarding current medication regime including effective adherence. Addressed patient/caregiver concerns regarding diagnosis and prognosis including accuracy of diagnosis, prognosis over time, impact of diagnosis. Addressed patient/caregiver concerns regarding impact of recent stressors. [facility] Medical History Factor 5 Leiden mutation, heterozygous Endometriosis ADHD Acute respiratory disease No pertinent past medical history Surgical History S/P dilatation and curettage History of gastric surgery History of cholecystectomy Family History Father Depression Multiple sclerosis Alcoholism Mother High cholesterol ADHD Vitamin D deficiency Other Mental health disorder Substance use disorder Social History Household Members: Spouse Housing: House Alcohol intake: current Alcohol intake frequency: holidays/special occasions only Patient Tobacco Use Status: Never used Tobacco e-Cigarette/Vaping Use: Never Used Second Hand Smoke Exposure: No service: No Current occupational status: employed 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 she is close to bio sister. father was functioning ETOHIC, very chaotic, took all their money home was foreclosed and parents when pt age 20. Substance History: none Trauma History: chaotic childhood/parental substance abuse Coding Level of Care Code Tele Est Pt Level 4 (77818) Diagnoses LEÓN (generalized anxiety disorder) F41.1 ADHD (attention deficit hyperactivity disorder), inattentive type F90.0
--- OUTSIDE RECORDS SUMMARY | 2025-02-22 14:19 | XMS_ITS | Clinical Summary ---
Author Organization [facility] Address [address] [place] [address] Phone Care Team Providers Care Industrial Photographer Name Role Phone Rajesh Byrd MD Primary Care Provider Allergies Active Allergy Reactions Criticality Noted Date Comments Clindamycin Hcl Rash Low 02/26/2020 Medications buPROPion (WELLBUTRIN XL) 300 MG ER 24 hr tablet Take 300 mg by mouth daily. Active omeprazole magnesium (PRILOSEC ORAL) Take 20 mg by mouth daily. Active loratadine (CLARITIN) 10 mg tablet Take 10 mg by mouth daily. Active ALPRAZolam (XANAX) 0.5 MG tablet Take 0.5 mg by mouth daily. 1 Active zolpidem (AMBIEN) 10 mg tablet Take 10 mg by mouth nightly at bedtime as needed. 1 Active SUMAtriptan (IMITREX) 50 MG tabletIndication s:Migraine without aura and without status migrainosus, not intractable Take 1 tablet (50 mg total) by mouth every 2 (two) hours as needed for migraine. Not to exceed 200 mg/day 18 tablet 5 1 Active PARoxetine (PAXIL) 30 MG tablet Take 30 mg by mouth daily. 2 Active acetaminophen (TYLENOL) 325 mg tablet Take 2 tablets (650 mg total) by mouth every 4 (four) hours as needed. 3 Active ibuprofen (ADVIL,MOTRIN) 200 MG tablet Take 3 tablets (600 mg total) by mouth every 6 (six) hours as needed for pain (specific location in comments). 3 Active Active Problems Problem Noted Date Diagnosed Date Medication exposure during first trimester of pr egnancy 09/01/2022 Overview (09/01/2022): Uses Paxil, has not done well on other SSRI Discussed small increase in risk for CV malformation After counseling, plans to stay on Paxil (and bupropion) E-consult ordered, plan for Level II U/S Previous gastric bypass affe cting in first trimester, antepartum 09/01/2022 Overview (09/01/2022): Stress importance of vitamin and continuing with any vitamin supplementation recommended by bariatric surgeon. Screen for micronutrient deficiencies at first visit and q trimester o CBC, Ferritin, Iron, Vitamin B12, Thiamine, Folate, Calcium, Vitamin D [*Vitamin B12 required to use nitrous oxide] Consider serial growth ultrasounds in third trimester, samina for patients with poor weight gain or who conceive within 2 years of surgery Avoid 50g glucose tolerance test due to risk of dumping syndrome. Refer patient to [facility] for QID testing x 2 weeks as an alternative. First trimester screening can be performed with HgbA1C as indicated Low threshold for abdominal imaging in patients with abdominal pain due to risk of bowel obstruction, cholelithiasis Timing and mode of delivery based on standard obstetric indications See Up-To-Date article F ertility and after bariatric surgery . [email or web address] rch=[email or web address]%20bypass%[email or web address]%[email or web address]&source=search_result&selectedTitle=1~150& usage _type=default&display_rank=1 Encounter for supervision of high risk primigravida of advanced maternal age 0308/31/2022 Overview (09/01/2022): CNM No OB-CMI score has been filled out for this encounter. HR due to AMA, h/o gastric sleeve Group PN care? * Rh * GC/Chlam * PAP * Tdap * Flu * COVID-19* Hgb * GTT * 28 wk Repeat RPR * GBS * PPBC * screening * Anxiety during 08/31/2022 Overview (08/31/2022): Diagnosed in adolescence Has used buproprion and paxil with good effect - PCP prescribes Uses xanax as needed (not during ) Sees therapist weekly at [facility] Has never been hospitalized, no h/o self-harm or suicide attempt Midline thoracic back pain 11/21/2020 Overview (11/21/2020): Location is in the lower rib areas, cyclic with periods but nature and location seems unlikely for endometriosis to be the cause, onset seems more angie to muscle spasms Assessment & Plan (11/21/2020 8:33 AM EDT): Similarly, can have laparoscopy to assess for endometriosis though it is difficult to assess in upper abdomen due to anatomy and that is very unusual location for endometriosis - recommend seeing PCP or physiatry to assess , ideally at the time pain is expected to be present Dysmenorrhea 11/21/2020 Overview (11/21/2020): Endometriosis possible Assessment & Plan (11/21/2020 8:35 AM EDT): Can treat empirically - systemic hormones. Local with LNG IUD. GnRh is another medical management - all treat and do not mask endometriosis However, all would preclude or prevent Laparoscopy - dx and therapeutic, but approx 50% chance that endometriosis would not be found at that time; R&B of surgery discussed Constipation 11/21/2020 Overview (11/21/2020): With menses and very painful BMs with menses as well Assessment & Plan (11/21/2020 8:30 AM EDT): The pain described could be from endometriosis or from constipation Dx laparoscopy can assess for endometriosis, remove or cauterize those lesions so amenable; however, lesion directly on the bowel, if present, would require involvement of general surgeon Amenorrhea 02/26/2020 Overview (02/27/2020): Weekly negative home UCGs With fatigue, nausea, some melasma [facility] area Assessment & Plan (02/27/2020 12:19 PM EDT): Uncertain etiology of these sxs while on same OCP, has been off x 8 days Check labs as below, sheplans to use condoms and reassess sxs off OCP x a month Immunizations Immunization Administration Dates Next Due COVID-19 (Pre-03/29) Moderna Vaccine, mRNA, PF 08/07/2020,07/09/2020 Influenza Quadrivalent Prese rvative Free IM 03/04/2021,03/21/2020,03/21/2020,2018,03/18/2018 Influenza Quadrivalent w/ Preservative IM 02/25/2017 Influenza, Unspecified Formulation 03/11/2023 MMR 10/20/2018 Rho (D) Immune Globulin 09/16/2022 Family History Medical History Relation Comments Alcohol abuse Father Multiple sclerosis Father Diabetes Maternal Grandmother Hyperlipidemia Mother Prostate cancer Paternal Grandfather No Known Problems Paternal Grandmother No Known Problems Sister Relation Status Comments Father Alive Maternal Grandmother Alive Mother Alive Paternal Grandfather Paternal Grandmother Alive Sister Alive Social History Tobacco Use Types Packs/Day Years [...] file Not on file Not on file Last Filed Vital Signs Vital Sign Reading Time Taken Comments Blood Pressure 120/64 09/16/2022 10:18 AM EDT Pulse 84 09/15/2022 3:15 PM EDT Temperature 36.3 C (97.3 F) 09/15/2022 2:35 PM EDT Respiratory Rate 13 09/15/2022 3:15 PM EDT Oxygen Saturation 96% 09/15/2022 3:15 PM EDT Inhaled Oxygen Concentration - - Weight 83.5 kg (184 lb) 09/16/2022 10:18 AM EDT Height 151.1 cm (4' 11.5 ) 09/15/2022 11:55 AM E DT Body Mass Index 36.54 09/15/2022 11:55 AM EDT Plan of Treatment Health Maintenance Due Date Last Done Comments Adult Td,Tdap Booster 1985 DEPRESSION SCREENING 1999 HEPATITIS C SCREENING 08/22/2005 HIV ONE-TIME SCREENING (18-65 YEARS) 08/22/2005 SCREENING FOR DIABETES 08/22/2022 PAP SMEAR 04/22/2023 04/22/2020, 04/22/2020 INFLUENZA VACCINE (#1) 2025 3, 03/19/2022, 03/04/2021, Additional history exists COVID-19 VACCINE ( season) 2025 06/13/2021, 08/07/2020, 07/09/2020 SMOKING STATUS SCREENING (Once After 26 Yrs) Completed 09/15/2022 HEPATITIS A VACCINES Aged Out No long er eligible based on patient's age to complete this topic HIB VACCINES Aged Out No longer eligi ble based on patient's age to complete this topic MENINGOCOCCAL VACCINES (ACWY) Aged Out No longer eligible based on patient's age to complete this topic MENINGOCOCCAL VACCINES (B) Aged Out N o longer eligible based on patient's age to complete this topic PNEUMOCOCCAL VACCINES (0-49 years) Aged Out No longer eligible based on patient's age to complete this topic Medical Devices Not on file Procedures Procedure Name Priority Date/Time Associated Diagnosis Comments PAP TEST Routine 04/22/2020 12:00 AM EST from Last 3 Months or Most Recently Relevant to Health Maintenance Results * Pap Smear (04/22/2020 12:00 AM EST) 04/22/2020 04/23/2020 8:3 5 AM EST Narrative SEE NARRATIVE - 04/29/2020 3:18 PM EST [address] [address] Portainer Operator: Ayala Scott MD EMT P Cytology Report FINAL DIAGNOSIS A. PAP SMEAR (SUREPATH) CE: SPECIMEN ADEQUACY: Satisfactory for evaluation; transformation zone present. INTERPRETATION: NEGATIVE FOR INTRAEPITHELIAL LESION OR MALIGNANCY. Electronically Signed Out By: YANETH Pillai(ASCP) The Pap test is a screening test primarily for squamous cancers and precursors and has associated false-negative and false-positive results. New technologies such as liquid-based preparations may decrease but will not eliminate all false-negative results. Regular sampling and follow-up of unexplained clinical signs and symptoms are recommended to minimize false negative results. PROCEDURES/ADDENDA HPV Testing (Requested) Ordered Date: 04/23/2020 A. PAP SMEAR (SUREPATH) CE: Human Papilloma Virus Test Negative for high-risk human papillomavirus types 16, 18, 45 and the Other high risk probe set (Includes 31, 33, 35, 39, 51, 52, 56, 58, 59, 66, 68) by [email or web address] Onclarity HR-HPV analysis. Clinical correlation is advised. This HPV test was performed at [facility], [address] [place] [address]. This test has been FDA approved for SurePath cervical cytology specimens. The accuracy and precision of this test for all other specimen sources has been verified in the Cytopathology Laboratory of the [facility] and has not been cleared or approved by the U.S. Food and Drug Administration. Clinical correlation is advised. CLINICAL HISTORY Date of Last Menstrual Period: Not Provided Menstrual History: Unknown Other Clinical Conditions: Screening Pap SPECIMEN SOURCE A: PAP SMEAR (SUREPATH) CE Patient Name: ANNE-MARIE MOTA : 1985 (Age: 34) Sex: F Institution: [facility] Location: [facility] Date of Collection: 04/22/2020 Date of Reported: 04/24/2020 15:29 Results to: Mae Mcdonnell MD Mae Mcdonnell MD CYTOLOGY ORDERABLES Edited Resul t - Final SEE NARRATIVE from Last 3 Months or Most Recently Relevant to Health Maintenance Insurance [employer] [place] [id number] [employer]EF[employer]MINISTRAT[employer]EF[employer] B[employer]EF[employer] [address] [facility] Care Teams Industrial Photographer Relationship Specialty Start Date End Date Rajesh Byrd MD [address] [place] [id number] PCP - General 03/07/20 Additional Source Comments The information contained in this document represents components of the legal health record. It is not the complete legal health record.[facility]
--- OUTSIDE RECORDS SUMMARY | 2025-02-22 14:19 | XMS_ITS | Encounter Summary ---
Author Organization [facility] Address [address] [place] [phone] Phone Care Team Providers Care Solo Truck Driver Name Role Phone Rajesh Byrd MD Primary Care Provider Encounter Details Date Type Department Care Team (Late st Contact Info) Description 09/15/2022 Procedure Pass OR Admitting Dept - Virtual Department [address] [place] [address] Social History Tobacco Use Types Packs/Day Years Used Date Smoking Tobacco: Never Smokeless Tobacco: Never Alcohol Use Standard Drinks/Week Comments Never 0 (1 standard drink = 0.6 oz pur e alcohol) Comments Yes Sex and Gender Information Value [...] PM EDT Ashley Nowak nd, RN * Morgan Suicide Severity Rating Scale (Screener/Recent Self-Report) Question Answer Date of Assessment Author 2. Non-Specific Active Suicidal Thoughts (Past 1 Month) No 09/15/2022 12:00 PM EDT Lanette Baker RN documented as of this encounter Plan of Treatment Not on file documented as of this encounter Visit Diagnoses Not on filedocumented in this encounter Care Teams Solo Truck Driver Relationship Specialty Start Date End Date Rajesh Byrd MD [address] [place] [address] PCP - General 03/07/20 documented as of this encounter Additional Source Comments The information contained in this document represents components of the legal health record. It is not the complete legal health record.[facility]
--- OUTSIDE RECORDS SUMMARY | 2025-02-22 14:19 | XMS_ITS | Encounter Summary ---
Author Organization [employer]) [facility] Address [address] [place] [phone] Phone Care Team Providers Care Paper Slitter Name Role Phone Rajesh Byrd MD Primary Care Provider Encounter Details Date Type Department Care Team (Late st Contact Info) Description 08/31/2022 Transcribe Orders [facility] [address] [place] [phone] Jamshid Escoto MD Social History Tobacco Use [...] on filedocumented in this encounter Care Teams Paper Slitter Relationship Specialty Start Date End Date Rajesh Byrd MD [address] [place] [address] PCP - General 03/07/20 documented as of this encounter Additional Source Comments The information contained in this document represents components of the legal health record. It is not the complete legal health record.[facility]
== END 2025-02-22 12:04 | disposition home or self-care (01) ==
LOC: HO.HOP 12:04
PROVIDERS: PCP Family Medicine; Visit Provider Clinical Nurse Specialist Psychiatric/Mental Health
DX: F41.1 Generalized anxiety disorder (principal); F90.0 Attention-deficit hyperactivity disorder, predominantly inattentive type
CPT/HCPCS: 99214

== ENCOUNTER 2025-03-02 13:56 | Outpatient (AMB) | payer OTHER, SELFPAY ==
--- NOTE | 2025-03-02 14:13 | A.OFFPC_ITS ---
Vital Signs 03/02/25 14:23 Height 4 ft 11 in Weight 186 lb 8 oz BMI 37.7 BP 108/59 L Blood Pressure Location Lt brachial Position Sitting Respiration 16 Pulse 94 Pulse Source Pulse Oximeter Temp 98.4 F Temp Source Oral Pulse Oximetry (%) 98 Oxygen Delivery Method Room Air Intake Visit Reasons: Annual (Pls keep appt) Intake Note: patient here for CPE Research Tech Required: No Is last menstrual period known: Yes Last menstrual period: 02/10/25 Post menopausal: No Patient : No Allergies clindamycin (CLINDAMYCIN) Allergy (Severe, Verified 03/02/25 14:18) RASH Clindamycin HCl Allergy (Unknown, Verified 03/02/25 14:18) rash, full body rash SEASONAL ALLERGIES Allergy (Intermediate, Uncoded 07/20/24 08:28) RUNNY NOSE SNEEZING desolvable stitches Allergy (Mild, Uncoded 07/20/24 08:28) welts DISOLVABLE SUTURES Allergy (Mild, Uncoded 07/20/24 08:28) WELTS Enviromental allergies Allergy (Mild, Uncoded 07/20/24 08:28) runny nose, sneezing Medication List - Last Reconciled 03/02/25 by Rajesh Byrd MD alprazolam 0.5 mg PO DAILY PRN 1 month cholecalciferol (vitamin D3) 50 mcg PO DAILY 30 days ferrous fumarate 325 mg PO DAILY 30 days lisdexamfetamine (Vyvanse) 30 mg PO DAILY loratadine (Claritin) 10 mg PO DAILY omeprazole magnesium 20 mg PO DAILY ondansetron HCl 4 mg PO Q8H PRN vits no.42-folic acid 1.[address] 1 tab PO DAILY sertraline 200 mg (2 x 100 mg) PO DAILY valacyclovir 500 mg PO Q12H 14 days zolpidem 10 mg PO BEDTIME 1 month Tobacco use date assessed: 03/02/25 Dental Screening Dental Screen Date: 03/02/25 Did you have a dental visit in the last 12 months?: Yes Did you have a dental problem in the last 6 months where you did not have access to dental care?: No Was dental information given to patient?: Patient has dentist HPI Annual (Pls keep appt) HPI Details 39 y/o female presents for a CPE with f/ u labs, health maint. She is on alprazolam, zolpidem, sertraline for her mood. Also on Vyvanse. PHQ-9 11, LEÓN-7 11 today. Needs new therapist and psychiatrist. She is already working on this. Labs drawn 02/16/25. Reviewed labs with pt. Triglycerides 81. TC 259. LDL 181. HDL 73. She notes some chest pain with shortness of breath when exerting herself hard No problems at rest or when walking her dog. HPI Comments History of Present Illness Details Documentation assistance for Rajesh Byrd MD, was provided by Jas Subramanian,? Delinquent Tax Collection Assistant on 03/02/2025 at 2:33 PM EST. I, Dr. Byrd, have read, observed, and verified documentation. ?? [facility] Medical History (Updated 03/02/25 @ 15:02 by Rajesh Byrd MD) Factor 5 Leiden mutation, heterozygous Endometriosis ADHD Acute respiratory disease No pertinent past medical history Surgical History S/P dilatation and curettage History of gastric surgery History of cholecystectomy Family History Father Depression Multiple sclerosis Alcoholism Mother High cholesterol ADHD Vitamin D deficiency Other Mental health disorder Substance use disorder Social History Housing: House Alcohol intake: current Alcohol intake frequency: holidays/special occasions only Patient Tobacco Use Status: Never used Tobacco e-Cigarette/Vaping Use: Never Used Second Hand Smoke Exposure: No Patient : No service: No Current occupational status: employed 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 1. Little interest or pleasure in doing things: more than half the days 2. Feeling down, depressed, or hopeless: more than half the days 3. Trouble falling or staying asleep, or sleeping too much: more than half the days 4. Feeling tired or having little energy: more than half the days 5. Poor appetite or overeating: not at all 6. Feeling bad about yourself - or that you are a failure or have let yourself or your family down: more than half the days 7. Trouble concentrating on things, such as reading the newspaper or watching television: several days 8. Moving or speaking so slowly that other people could have noticed. Or the opposite - being so fidgety or restless that you have been moving around a lot more than usual: not at all 9. Thoughts that you would be better off or of hurting yourself in some way: not at all Total score: 11 Depression Screening Interpretation: Positive Depression Screening Follow-up: In treatment Depression Screening Done: Yes 43953 - PHQ-9 Billing: Yes Source: Developed by Drs. Daniel Brody, Simi Olvera, Darrell Floyd and colleagues, with an educational tracy from [employer]. Thrive Questionnaire Date Thrive assessed: 03/02/25 I am a: Patient What is your living situation today?: I have a steady place to live Within the past 12 months, did the food you bought not last and you didn't have the money to get more?: Never true Within the past 12 months, did you worry whether your food would run out before you got money to buy more?: Never true Do you have trouble paying for medicines?: No Do you have trouble getting transportation to medical appointments?: No Do you have trouble paying your heating and electricity bill?: No Do you have trouble taking care of your child, family member or friend?: No Do you have trouble with day-to-day activities such as bathing, preparing meals, shopping, managing finances, etc.?: No Are you currently unemployed and looking for a job?: No Are you interested in more education?: No Please select the resources that you would like help with: None Currently or been in a relationship where the following occur: No concerns reported THRIVE Score: 0 AUDIT C Alcohol Use Questionnaire (AUDIT-C) 1. How often do you have a drink containing alcohol?: Monthly or less 2. How many drinks containing alcohol do you have on a typical day when you are drinking?: 3 or 4 3. How often do you have six or more drinks on one occasion?: Less than monthly Total Score: 3 Score Reviewed/Action Taken: Yes LEÓN-7 AMB Questionnaire LEÓN-7 Date LEÓN - 7 assessed: 03/02/25 Feeling nervous, anxious, or on edge: 2 = More than half the days Not being able to stop or control worryin = More than half the days Worrying too much about different things: 2 = More than half the days Trouble relaxin = Several days Being so restless that it is hard to sit still: 0 = Not at all Becoming easily annoyed or irritable: 2 = More than half the days Feeling afraid as if something awful might happen: 2 = More than half the days Total LEÓN-7 score (0-4 normal; 5-9 mild; 10-14 moderate; 15-21 severe): 11 Source: Developed by Drs. Daniel Brody, Simi Olvera, Darrell Floyd and colleagues, with an educational tracy from [employer]. LEÓN-7 Assessment Billing LEÓN-7 Assessment Tool: LEÓN-7 Assessment 81148 Review of Systems Const Denies chills, Denies fatigue, Denies fever(s), Denies headache(s) and Denies weakness Eyes Denies change in vision ENT Denies dizziness, Denies headache(s), Denies hearing loss, Denies nasal congestion, Denies sinus pain, Denies sinus pressure and Denies sore throat Card Denies chest pain, Denies lightheadedness, Denies dyspnea and Denies other (palpitations) Resp Denies cough, Denies dyspnea and Denies wheezing GI Denies abdominal pain, Denies melena, Denies hematochezia, Denies change in bowel habits, Denies dyspepsia and Denies nausea Denies hematuria and Denies dysuria Musc Denies abnormal gait, Denies myalgias, Denies arthralgias, Denies numbness and Denies tingling Skin/Breast Denies rash, Denies unusual bruising and Denies wounds Neuro Denies abnormal gait, Denies dizziness, Denies headache(s), Denies memory loss, Denies numbness, Denies Sensory deficit (Neuro), Denies tingling and Denies weakness Psych Denies anxiety, Denies depression and Denies memory loss Endo Denies cold intolerance, Denies fatigue, Denies heat intolerance, Denies polydipsia and Denies polyuria Charles/Lymph Denies easy bleeding and Denies easy bruising Aller/Immun Denies wheezing Physical exam (Primary Care) Vital Signs: Last Vital Signs Temp 98.4 F 03/02/25 14:23 Pulse 94 03/02/25 14:23 Resp 16 03/02/25 14:23 BP 108/59 L 03/02/25 14:23 Pulse Ox 98 03/02/25 14:23 Oxygen Delivery Method Room Air 03/02/25 14:23 BMI result Body Mass Index 37.7 Tobacco/Smoking Status: Tobacco use Status Tobacco use date assessed 03/02/25 03/02/25 14:22 Patient Tobacco Use Status Never used Tobacco 03/02/25 14:17 e-Cigarette/Vaping Use Never Used 03/02/25 14:17 PHQ-9: PHQ-9 Score PHQ-9: Total score 11 03/02/25 14:30 Depression Screening Interpretation: Positive Depression Screening Follow-up: In treatment Thrive Assessment: Date of Thrive Assessment Date Thrive assessed 03/02/25 03/02/25 14:17 Currently or been in a relationship where the following occur: No concerns reported Const General: no acute distress, well developed, alert and awake Nutritional Appearance: well nourished Orientation/consciousness: patient oriented x3 HENMT Head: Yes normocephalic and Yes atraumatic Ears: hearing grossly normal bilaterally and TM's normal bilaterally General nose exam: Normal external nose present and Normal nares present Mouth: Normal oral and palatal mucosa present and moist mucous membranes Teeth and gingiva: dentition normal Throat: Yes posterior oropharynx normal Eyes General: appearance normal, both eyes and all related structures Pupils: Equal, round and reactive pupils present and Pupil accommodation reflex normal EOM: EOMs intact bilaterally Neck Neck: Yes normal visual inspection, Yes no lymphadenopathy and Yes trachea midline Thyroid: Thyroid normal Carotids: no bruits Lymphatic: no lymphadenopathy noted Chest Chest palpation & inspection: normal inspection of the chest Resp Effort & Inspection: normal respiratory effort Auscultation: clear to auscultation bilaterally Cardio Rate: regular rate Rhythm: regular rhythm Heart sounds: S1 normal heart sound present, S2 normal heart sound present, no gallops, no murmurs and no rubs Bruits: no abdominal aortic bruits and no carotid bruits GI Palpation (GI): No Abdominal aortic bruit present, Soft to palpation, nontender, No hepatosplenomegaly present and No Rebound tenderness present Auscultation: normal bowel sounds General: Yes no CVA tenderness Back/Spine/Pelvis Back: no CVA tenderness Cervical Spine: cervical ROM normal and No Cervical spine tenderness Thoracic/Lumbar Spine: thoraco-lumbar ROM normal, No pain with thoraco-lumbar ROM, No thoracic spinal tenderness and No lumbar spinal tenderness Skin Lesions: no lesions Rashes: no rashes Trauma: no lacerations or abrasions Wounds: no wounds Nails: normal Neuro General: patient oriented x3 Cranial nerves: Yes Equal, round and reactive pupils present Cognition (Neuro): normal cognition Gait exam (Neuro): Normal gait present Motor exam (neuro): 5/5 motor strength present throughout Sensory Exam: No Sensory deficit (Neuro) Deep tendon reflexes (DTR's): Right patellar reflex intensity grade: 2+ and Left patellar reflex intensity grade: 2+ Extrem General: Yes normal to inspection and No edema Psych Appearance: grossly normal Affect: normal affect Attitude: cooperative Thought process: Normal thought process present Coding Level of Care Code Est Pt Level 3 (58789) Est Pt Prev Care 18-39y(02458) Diagnoses Annual physical exam Z00.00 Depression with anxiety F41.8 ADHD (attention deficit hyperactivity disorder), inattentive type F90.0 Screening for cervical cancer Z12.4 Chest pain on exertion R07.9 Hyperlipidemia E78.5 Additional Codes LEÓN-7 Assessment Billing - LEÓN-7 Assessment Tool: LEÓN-7 Assessment 97001 ([id number]) PHQ-9 - 52942 - PHQ-9 Billing: Yes ([id number]) Assessment & Plan Assessment & Plan (1) Annual physical exam: Code(s): Z00.00 - Encounter for general adult medical examination without abnormal findi ngs Category: Medical Plan: 39-year-old female presents for complete physical exam Encouraged healthy diet with active lifestyle and plenty of exercise (2) Depression with anxiety: Code(s): F41.8 - Other specified anxiety disorders Category: Medical Plan: Ongoing anxiety and depression with stressors Followed by [facility] [place] and they have been managing her medications. Continue current medication regimen She is working on getting a new psych med provider and therapist. (3) ADHD (attention deficit hyperactivity disorder), inattentive type: Code(s): F90.0 - Attention-deficit hyperactivity disorder, predominantly inattentive type Category: Medical Plan: Managed by [facility] [place] [facility] [place]. She is working on getting a new psych med provider (4) Screening for cervical cancer: Code(s): Z12.4 - Encounter for screening for malignant neoplasm of cervix Category: Medical Plan: Patient recently changed providers to Dr. Blancas at [facility] Follow-up at [facility] as recommended (5) Chest pain on exertion: Code(s): R07.9 - Chest pain, unspecified Category: Medical Plan: Chest pain with intense exertion EKG: Will check stress test Chest x-ray ordered as well Will follow-up after stress test (6) Hyperlipidemia: Code(s): E78.5 - Hyperlipidemia, unspecified Category: Medical Plan LDL cholesterol 170 Start atorvastatin 20 mg daily Will recheck at next visit Orders: Orders AMB EKG-In Office Today R07.9 - Chest pain, unspecified XR chest 2V Today R07.9 - Chest pain, unspecified CA stress test Today R07.9 - Chest pain, unspecified Lipid Panel Today E78.00 - Pure hypercholesterolemia, unspecified, Z00.00 - Encounter for general adult medical examination without abnormal findings Comprehensive [place]. Panel Fast Today E78.00 - Pure hypercholesterolemia, unspecified, Z00.00 - Encounter for general adult medical examination without abnormal findings Referrals Hematology & Oncology Referral D68.51 - Activated protein C resistance
[2025-03-02 14:23] VITALS: BP 108/59; PULSE 94; RESP 16; TEMP 36.9; O2SAT 98; BMI 37.7
== END 2025-03-02 15:58 | disposition home or self-care (01) ==
LOC: HO.HMCFM 13:57
PROVIDERS: PCP Family Medicine; Visit Provider Family Medicine
DX: Z00.00 Encounter for general adult medical examination without abnormal findings (principal); R07.9 Chest pain, unspecified; F41.8 Other specified anxiety disorders; F90.0 Attention-deficit hyperactivity disorder, predominantly inattentive type; E78.5 Hyperlipidemia, unspecified

== ENCOUNTER → 2025-03-02 13:56 | Outpatient (BNVA) | payer OTHER, SELFPAY | PROVIDERS: PCP Family Medicine; Visit Provider Family Medicine | DX: Z00.00 Encounter for general adult medical examination without abnormal findings (principal); F41.8 Other specified anxiety disorders; F90.0 Attention-deficit hyperactivity disorder, predominantly inattentive type; R07.9 Chest pain, unspecified; E78.00 Pure hypercholesterolemia, unspecified; D68.51 Activated protein C resistance | CPT/HCPCS: 93005; 96127 ==

== ENCOUNTER 2025-03-08 11:03 | Outpatient (REF) | payer OTHER, SELFPAY ==
--- OUTSIDE RECORDS SUMMARY | 2021-06-27 14:18 | XMS_ITS | Encounter Summary ---
Author Organization [facility] Address [facility] [address] [place] [phone] Phone Care Team Providers Care Clinical Nurse Leader Name Role Phone Rajesh Byrd MD Primary Care Provider Encounter Details Date Type Department Care Team (Late st Contact Info) Description 06/27/2021 1:18 PM [facility] Hospital Encounter [facility] [address] [place] [phone] Roxanne Akhtar FNP [address] [place] [phone] [email or web address] Social History Tobacco Use Types Packs/Day Years [...] PM EDT Ashley Nowak nd, RN * [place] Suicide Severity Rating Scale (Screener/Recent Self-Report) Question [...] abdomen. IMPRESSION: No acute abnormality. Roxanne Akhtar STAINLESS STEEL FINISHER IMG XR CHEST Final Resul t documented in this encounter Visit Diagnoses Not on filedocumented in this encounter Additional Health Concerns Infection Onset Date Last Indicated Resolved Time COVID-19 06/17/2021 06/17/2021 07/08/2021 1:22 AM EST documented as of this encounter Care Teams Clinical Nurse Leader Relationship Specialty Start Date End Date Rajesh Byrd MD [address] [place] [address] PCP - General 03/07/20 documented as of this encounter Additional Source Comments The information contained in this document represents components of the legal health record. It is not the complete legal health record.[facility]
--- NOTE | ~2025-03-08 | XR_ITS ---
EXAMINATION: XR CHEST CLINICAL INFORMATION: R07.9 - Chest pain, unspecified COMPARISON: 07/24/2024. TECHNIQUE: 2 views of the chest were obtained. FINDINGS: The cardiac, hilar, and mediastinal contours are normal. The lungs are clear bilaterally. There is no pneumothorax or pleural effusion. There is no focal osseous or soft tissue abnormality. There are surgical clips in the epigastric region. There are cholecystectomy clips present. XR/XR chest 2V IMPRESSION: No active pulmonary disease. Electronically signed by: Jimi Pedraza MD 03/08/2025 11:32 AM EDT
--- OUTSIDE RECORDS SUMMARY | 2025-03-08 12:58 | XMS_ITS | Clinical Summary ---
Author Organization [facility] Address [address] [place] [phone] Phone Care Team Providers Care Receiving Distribution Station Operator Name Role Phone Rajesh Byrd MD [...] F ertility and after bariatric surgery . [email or web address]/contents/[email or web address]-mcktp-byplnlxto-qpswde y?sea rch=gastric%20bypass%20and%20pregnancy&source=search_result&selectedTitle=1~150& usage _type=default&display_rank=1 Encounter for supervision [...] (not during ) Sees therapist weekly at [facility] Has never been hospitalized, no h/o [...] home UCGs With fatigue, nausea, some melasma [facility] area Assessment & Plan (02/27/2020 12:19 [...] SEE NARRATIVE - 04/29/2020 3:18 PM EST [address] [address] Supervisor Anodizing: Ayala Scott MD VENDOR ANALYST Cytology Report FINAL DIAGNOSIS A. PAP SMEAR [...] 52, 56, 58, 59, 66, 68) by [employer] On[employer]arity HR-HPV analysis. Clinical correlation is advised. This HPV test was performed at [facility], [address] [place] [address]. This test has been FDA approved for SurePath cervical cytology specimens. The accuracy and precision of this test for all other specimen sources has been verified in the Cytopathology Laboratory of the [facility] and has not been cleared or approved by the U.S. Food and Drug Administration. Clinical correlation is advised. CLINICAL HISTORY Date of Last Menstrual Period: Not Provided Menstrual History: Unknown Other Clinical Conditions: Screening Pap SPECIMEN SOURCE A: PAP SMEAR (SUREPATH) CE Patient Name: ANNE-MARIE MOTA : 1985 (Age: 34) Sex: F Institution: [facility] Location: [facility] Date of Collection: 04/22/2020 Date of Reported: 04/24/2020 15:29 Results to: Mae Mcdonnell MD Mae Mcdonnell MD CYTOLOGY ORDERABLES Edited Resul t - Final SEE NARRATIVE from Last 3 Months or Most Recently Relevant to Health Maintenance Insurance [employer] [place] [id number] [employer] [place] [address] [place] [address] [facility] Care Teams Receiving Distribution Station Operator Relationship Specialty Start Date End Date Rajesh Byrd MD [address] [place] [address] PCP - General 03/07/20 Additional Source Comments The information contained in this document represents components of the legal health record. It is not the complete legal health record.[facility]
--- OUTSIDE RECORDS SUMMARY | 2025-03-08 12:58 | XMS_ITS | Encounter Summary ---
Author Organization [facility] Address [address] [place] [phone] Phone Care Team Providers Care Metrology Engineer Name Role Phone Rajesh Byrd MD Primary Care Provider Encounter Details Date Type Department Care Team (Late st Contact Info) Description 09/15/2022 Procedure Pass OR Admitting Dept - Virtual Department [address] [place] [address] Social History Tobacco Use Types Packs/Day Years [...] PM EDT Ashley Nowak nd, RN * [place] Suicide Severity Rating Scale (Screener/Recent Self-Report) Question Answer Date of Assessment Author 2. Non-Specific Active Suicidal Thoughts (Past 1 Month) No 09/15/2022 12:00 PM EDT Lanette Baker RN documented as of this encounter Plan of Treatment Not on file documented as of this encounter Visit Diagnoses Not on filedocumented in this encounter Care Teams Metrology Engineer Relationship Specialty Start Date End Date Rajesh Byrd MD [address] [place] [address] PCP - General 03/07/20 documented as of this encounter Additional Source Comments The information contained in this document represents components of the legal health record. It is not the complete legal health record.[facility]
--- OUTSIDE RECORDS SUMMARY | 2025-03-08 12:58 | XMS_ITS | Encounter Summary ---
Author Organization [employer] [facility] Address [address] [place] [address] Phone Care Team Providers Care Gate Technician Name Role Phone Rajesh Byrd MD Primary Care Provider Encounter Details Date Type Department Care Team (Late st Contact Info) Description 08/31/2022 Transcribe Orders [facility] [address] [place] [phone] Jamshid Escoto MD Social History Tobacco Use [...] on filedocumented in this encounter Care Teams Gate Technician Relationship Specialty Start Date End Date Rajesh Byrd MD [address] [place] [address] PCP - General 03/07/20 documented as of this encounter Additional Source Comments The information contained in this document represents components of the legal health record. It is not the complete legal health record.[facility]
[2025-03-12 12:28] LABS: Anti-Mullerian Hormone-Female 0.42 ng/mL (0.18-5.68)
== END 2025-03-08 11:04 | disposition home or self-care (01) ==
LOC: HO.HMGCX 11:03
PROVIDERS: PCP Family Medicine; Referring Provider Student in an Organized Health Care Education/Training Program; Visit Provider Family Medicine
DX: R07.9 Chest pain, unspecified (principal); Z31.41 Encounter for fertility testing
CPT/HCPCS: 36415; 71046; 82166

== ENCOUNTER → 2025-03-08 11:15 | Outpatient (BNV) | payer OTHER, SELFPAY | PROVIDERS: PCP Family Medicine; Referring Provider Student in an Organized Health Care Education/Training Program; Visit Provider Radiology Diagnostic Radiology | DX: R07.9 Chest pain, unspecified (principal) | CPT/HCPCS: 71046 ==

== ENCOUNTER → 2025-03-13 14:23 | Outpatient (BNV) | payer OTHER, SELFPAY | PROVIDERS: Visit Provider Internal Medicine | DX: D68.51 Activated protein C resistance (principal) | CPT/HCPCS: 99204 ==

== ENCOUNTER → 2025-05-11 08:09 | Outpatient (REF) | payer OTHER, SELFPAY ==
--- NOTE | 2025-05-11 08:12 | CA_ITS ---
Acquisition Time: 2025-05-11 08:10:15 Total Exercise Time: 00:06:00 Test Indications: CP, SOB Medications: SEE H&P Protocol: TI Max HR: 166 BPM 90% of Pred: 183 BPM Max BP: 110/70 mmHG Max Work Load: 7.0 METS Exercise stress test with exercise 6 mins of Ti Protocol, achieving 90% MPHR, with reports of 3/10 chest tightness and SOB, without any arrythmias, with normotensive response to exercise. Without any EKG changes meeting criteria for ischemia. In recovery, chest tightness and SOB improved and pt feeling back to baseline. Recommend stress echo for further eval. Test reviewed with Dr. Pacheco. Referred By: Rajesh Byrd Electronically Signed By: Julio C Juarez
== END ==
LOC: HO.CARD 08:09
PROVIDERS: PCP Family Medicine; Visit Provider Family Medicine
DX: R07.9 Chest pain, unspecified (principal)
CPT/HCPCS: 93017

== ENCOUNTER → 2025-05-11 08:12 | Outpatient (BNV) | payer OTHER, SELFPAY | PROVIDERS: PCP Family Medicine | DX: R07.89 Other chest pain (principal); R06.02 Shortness of breath | CPT/HCPCS: 93016; 93018 ==

== ENCOUNTER 2025-05-17 07:35 | Outpatient (REF) | payer OTHER, SELFPAY | END 2025-05-17 07:36 | disposition home or self-care (01) | LOC: HO.LNP 07:35 | PROVIDERS: PCP Family Medicine; Visit Provider Obstetrics & Gynecology | DX: Z01.419 Encounter for gynecological examination (general) (routine) without abnormal findings (principal) | CPT/HCPCS: 87626; 88175 ==

== ENCOUNTER 2025-05-17 07:35 | Outpatient (AMB) | payer OTHER, SELFPAY ==
--- OUTSIDE RECORDS SUMMARY | 2021-06-27 13:18 | XMS_ITS | Encounter Summary ---
Author Organization [facility] Address [facility] [address] [place] [phone] Phone Care Team Providers Care Boom Operator Name Role Phone Rajesh Byrd MD Primary Care Provider Encounter Details Date Type Department Care Team (Late st Contact Info) Description 06/27/2021 1:18 PM [facility] Hospital Encounter [facility] [address] [place] [phone] Roxanne Akhtar FNP [address] [place] [phone] [email or web address] Social History Tobacco Use Types Packs/Day Years Used Date Smoking Tobacco: Never Smokeless Tobacco: Never Alcohol Use Standard Drinks/Week Comments Never 0 (1 standard drink = 0.6 oz pur e alcohol) Education Answer Date Recorded Are you interested in more education? Not on danelle e 10/02/2022 Are you concerned about learning? Not on file 10/02/2022 No 10/02/2022 No 10/02/2022 Digital Access Answer Date Recorded No 10/31/2022 No 10/31/2022 Reliable internet access at home? Not on file 10/31/2022 Device with a working camera? Not on file Comments No Sex and Gender Information Value Date Recorded Sex Assigned at Female 03/07/2021 8:23 AM EDT Legal Sex Female 9:29 AM EDT Gender Identity Female 03/07/2021 8:23 AM EDT Sexual Orientation Straight 03/07/2021 8: 23 AM EDT Occupation Industry Job Start Date Job End Date Working Not on file Not on file Not on file documented as of this encounter Functional Status * Calculated C-SSRS Risk Score (Lifetime/Recent) Answer Date of Assessment Author No Risk Indicated 09/15/2022 12:00 PM EDT Ashley Nowak nd, RN * [place] Suicide Severity Rating Scale (Screener/Recent Self-Report) Question Answer Date of Assessment Author 2. Non-Specific Active Suicidal Thoughts (Past 1 Month) No 09/15/2022 12:00 PM EDT Lanette Baker RN documented as of this encounter Plan of Treatment Not on file documented as of this encounter Procedures Procedure Name Priority Date/Time Associated Diagnosis Comments XR CHEST PA AND LATERAL 2 VIEWS Urgent/patient waiting 06/27/2021 1:24 PM EST COVID-19 documented in this encounter Results * XR CHEST PA AND LATERAL 2 VIEWS (06/27/2021 1:24 PM EST) Anatomical Region Laterality Modality Chest Computed Radiogr aphy 06/27/2021 1:28 PM EST Impressions 06/27/2021 1:28 PM EST No acute abnormality. Narrative 06/27/2021 1:28 PM EST XR CHEST PA AND LATERAL 2 VIEWS COMPARISON: None. FINDINGS: Devices/Tubes/Lines: None. Lungs: No focal consolidation or pulmonary edema. Pleura: No pleural effusions or pneumothorax. Heart/Mediastinum: Normal cardiomediastinal silhouette. Bones/Soft Tissues: No significant skeletal abnormality. Surgical clips project over the upper abdomen. Procedure Note Roshni Tapia MD - 06/27/2021 XR CHEST PA AND LATERAL 2 VIEWS COMPARISON: None. FINDINGS: Devices/Tubes/Lines: None. Lungs: No focal consolidation or pulmonary edema. Pleura: No pleural effusions or pneumothorax. Heart/Mediastinum: Normal cardiomediastinal silhouette. Bones/Soft Tissues: No significant skeletal abnormality. Surgical clipsproject over the upper abdomen. IMPRESSION: No acute abnormality. Roxanne Akhtar NNPS IMG XR CHEST Final Resul t documented in this encounter Visit Diagnoses Not on filedocumented in this encounter Additional Health Concerns Infection Onset Date Last Indicated Resolved Time COVID-19 06/17/2021 06/17/2021 07/08/2021 1:22 AM EST documented as of this encounter Care Teams Boom Operator Relationship Specialty Start Date End Date Rajesh Byrd MD PCP - General 03/07/20 documented as of this encounter Additional Source Comments The information contained in this document represents components of the legal health record. It is not the complete legal health record.[facility]
--- OUTSIDE RECORDS SUMMARY | 2025-05-17 07:42 | XMS_ITS | Encounter Summary ---
Author Organization [facility] Address [address] [place] [address] Phone Care Team Providers Care Press Assistant Name Role Phone Rajesh Byrd MD Primary Care Provider Encounter Details Date Type Department Care Team (Late st Contact Info) Description 08/31/2022 Transcribe Orders [facility] [address] [place] [phone] Jamshid Escoto MD Social History Tobacco Use [...] on filedocumented in this encounter Care Teams Press Assistant Relationship Specialty Start Date End Date Rajesh Byrd MD PCP - General 03/07/20 documented as of this encounter Additional Source Comments The information contained in this document represents components of the legal health record. It is not the complete legal health record.[facility]
--- OUTSIDE RECORDS SUMMARY | 2025-05-17 07:45 | XMS_ITS | Encounter Summary ---
Author Organization [facility] Address [address] [place] [phone] Phone Care Team Providers Care Kitchen Runner Name Role Phone Rajesh Byrd MD Primary Care Provider Encounter Details Date Type Department Care Team (Late st Contact Info) Description 09/15/2022 Procedure Pass OR Admitting Dept - Virtual Department [address] [place] [address] Social History Tobacco Use Types Packs/Day Years [...] PM EDT Ashley Nowak nd, RN * [place] Suicide Severity Rating Scale (Screener/Recent Self-Report) Question Answer Date of Assessment Author 2. Non-Specific Active Suicidal Thoughts (Past 1 Month) No 09/15/2022 12:00 PM EDT Lanette Baker RN documented as of this encounter Plan of Treatment Not on file documented as of this encounter Visit Diagnoses Not on filedocumented in this encounter Care Teams Kitchen Runner Relationship Specialty Start Date End Date Rajesh Byrd MD PCP - General 03/07/20 documented as of this encounter Additional Source Comments The information contained in this document represents components of the legal health record. It is not the complete legal health record.[facility]
[2025-05-17 07:51] VITALS: BP 102/60; BMI 32.9
--- NOTE | 2025-05-17 07:51 | MHC.OFFVIS ---
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: No Information Interpreted: non-clinical & clinical Psychiatric Nursing Aide: Psychiatric Nursing Aide Present (Brenda Hoff MANSOOR) Accompanied by: se Allergies clindamycin (CLINDAMYCIN) Allergy (Severe, Verified 05/17/25 07:55) RASH Clindamycin HCl Allergy (Unknown, Verified 05/17/25 07:55) rash, full body rash SEASONAL ALLERGIES Allergy (Intermediate, Uncoded 05/17/25 07:55) RUNNY NOSE SNEEZING desolvable stitches Allergy (Mild, Uncoded 05/17/25 07:55) welts DISOLVABLE SUTURES Allergy (Mild, Uncoded 05/17/25 07:55) WELTS Enviromental allergies Allergy (Mild, Uncoded 05/17/25 07:55) runny nose, sneezing HPI Comments Details: Presenting for annual exam. No complaints. Last Pap/HPV few years ago, no records available [facility] Medical History Factor 5 Leiden mutation, heterozygous Endometriosis ADHD Acute respiratory disease No pertinent past medical history Surgical History S/P dilatation and curettage History of gastric surgery History of cholecystectomy Family History Father Depression Multiple sclerosis Alcoholism Mother High cholesterol ADHD Vitamin D deficiency Other Mental health disorder Substance use disorder Social History Household Members: Spouse Housing: House Alcohol intake: current Alcohol intake frequency: holidays/special occasions only Patient Tobacco Use Status: Never used Tobacco e-Cigarette/Vaping Use: Never Used Second Hand Smoke Exposure: No Use of substances other than those prescribed or required for medical reasons: No service: No Current occupational status: employed 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 occupational exposures/hazards: No Sexually active: Yes Sexual orientation: Straight/Heterosexual Gender identity: Female Cognitive needs: No Hearing needs: No Vision needs: No Female Reproductive History Menstrual Age of Menarche: 13 Date of last menstrual period: 05/09/25 Total pregnancies: 2 Full term: 0 Number of Living Children: 0 Ab spontaneous: 0 Review of Systems Const All systems reviewed & are unremarkable except as noted in HPI and below Card Reports as per HPI Resp Reports as per HPI GI Reports as per HPI and Reports no additional complaints Reports as per HPI Physical Exam Vital Signs: Last Vital Signs BP 102/60 05/17/25 07:51 BMI result Body Mass Index 32.9 Const General: cooperative, healthy appearing and comfortable Chest Chest palpation & inspection: normal inspection of the chest and normal palpation of entire chest wall Breast/axilla inspection: normal inspection of the breasts and normal inspection of the axillae Breast/axilla palpation: normal palpation of the breasts, normal palpation of the axillae and no axillary lymphadenopathy Resp Effort & Inspection: normal respiratory effort Auscultation: clear to auscultation bilaterally Percussion: percussion normal Cardio Palpation: normal PMI Rate: regular rate Rhythm: regular rhythm Heart sounds: no murmurs and no rubs Peripheral pulses: Peripheral pulses 2+ throughout GI Inspection: Yes normal to inspection Palpation (GI): Soft to palpation, nontender, no guarding, not rigid and No hepatosplenomegaly present Percussion: Yes normal to percussion Auscultation: normal bowel sounds Rectal Exam - Female: deferred General: Yes bladder normal to palpation External Female Exam: No lesion Speculum Exam - Vagina: normal appearance of the vagina, normal palpation, normal vaginal discharge and not erythematous Speculum Exam - Cervix: normal appearance of the cervix and normal palpation Bimanual exam- vagina & uterus: normal bimanual exam, normal palpation, uterine size normal, bladder normal to palpation, consistency normal and normal palpation Bimanual Exam- Adnexa, other: normal adnexae, no masses and no tenderness Assessment & Plan Assessment & Plan (1) Well woman exam: Code(s): Z01.419 - Encounter for gynecological examination (general) (routine) without abnormal findings Category: Medical Plan: Cotesting done. Counseled the patient about the recommended dietary allowance of 1000 mg of Calcium & 600 IU of vitamin D. The patient was instructed to perform monthly self-breast exams and to schedule an annual exam in a year; All questions answered and the patient verbalized understanding. Instructed the patient to schedule annual exam in a year Orders: Orders Pap Smear Today Z01.419 - Encounter for gynecological examination (general) (routine) without abnormal findings HPV High risk Today Z01.419 - Encounter for gynecological examination (general) (routine) without abnormal findings Coding Level of Care Code New Pt Prev Care 18-39yr(63197 Diagnoses Well woman exam Z01.419
== END 2025-05-17 08:22 | disposition home or self-care (01) ==
LOC: HO.HWS 07:35
PROVIDERS: PCP Family Medicine; Visit Provider Obstetrics & Gynecology
DX: Z01.419 Encounter for gynecological examination (general) (routine) without abnormal findings (principal)
CPT/HCPCS: 99395; 99459

== ENCOUNTER 2025-05-28 09:39 | Outpatient (AMB) | payer OTHER, SELFPAY ==
--- OUTSIDE RECORDS SUMMARY | 2021-06-27 13:18 | XMS_ITS | Encounter Summary ---
Author Organization [facility] Address [facility] [address] [place] [phone] Phone Care Team Providers Care Mining Technician Name Role Phone Rajesh Byrd MD Primary Care Provider Encounter Details Date Type Department Care Team (Late st Contact Info) Description 06/27/2021 1:18 PM [facility] Hospital Encounter [facility] [address] [place] [phone] Roxanne Akhtar FNP [address] [place] [phone] [email or web address] Social History Tobacco Use Types Packs/Day Years [...] on file documented as of this encounter Plan of [...] abdomen. IMPRESSION: No acute abnormality. Roxanne Akhtar GEOPHYSICAL PROSPECTING PERMIT AGENT IMG XR CHEST Final Resul t documented in this encounter Visit Diagnoses Not on filedocumented in this encounter Additional Health Concerns Infection Onset Date Last Indicated Resolved Time COVID-19 06/17/2021 06/17/2021 07/08/2021 1:22 AM EST documented as of this encounter Care Teams Mining Technician Relationship Specialty Start Date End Date Rajesh Byrd MD PCP - General 03/07/20 documented as of this encounter Additional Source Comments The information contained in this document represents components of the legal health record. It is not the complete legal health record.[facility]
--- NOTE | 2025-05-28 09:48 | MHC.PC.OV ---
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: No Is last menstrual period known: Yes Last menstrual period: 05/09/25 Post menopausal: No Patient : No Allergies clindamycin (CLINDAMYCIN) Allergy (Severe, Verified 05/28/25 10:04) RASH Clindamycin HCl Allergy (Unknown, Verified 05/28/25 10:04) rash, full body rash SEASONAL ALLERGIES Allergy (Intermediate, Uncoded 05/28/25 10:04) RUNNY NOSE SNEEZING desolvable stitches Allergy (Mild, Uncoded 05/28/25 10:04) welts DISOLVABLE SUTURES Allergy (Mild, Uncoded 05/28/25 10:04) WELTS Enviromental allergies Allergy (Mild, Uncoded 05/28/25 10:04) runny nose, sneezing Medication List - Last Reconciled 05/28/25 by Rajesh Byrd MD alprazolam 0.5 mg PO DAILY PRN 1 month aspirin 81 mg PO DAILY atorvastatin (Lipitor) 40 mg PO BEDTIME 90 days cholecalciferol (vitamin D3) 50 mcg PO DAILY 30 days coQ10 (ubiquinol) (Qunol Dylon CoQ10) 100 mg PO DAILY ferrous fumarate 325 mg PO DAILY 30 days lisdexamfetamine (Vyvanse) 20 mg PO DAILY loratadine (Claritin) 10 mg PO DAILY 90 days omeprazole magnesium 20 mg PO DAILY 30 days ondansetron HCl 4 mg PO Q8H PRN vits no.42-folic acid 1.[address] 1 tab PO DAILY sertraline 200 mg (2 x 100 mg) PO DAILY valacyclovir 500 mg PO Q12H 14 days zolpidem 10 mg PO BEDTIME 1 month Tobacco use date assessed: 05/28/25 Dental Screening Dental Screen Date: 05/28/25 Did you have a dental visit in the last 12 months?: Yes Did you have a dental problem in the last 6 months where you did not have access to dental care?: No Was dental information given to patient?: Patient has dentist [facility] Medical History Factor 5 Leiden mutation, heterozygous Endometriosis ADHD Acute respiratory disease No pertinent past medical history Surgical History S/P dilatation and curettage History of gastric surgery History of cholecystectomy Family History Father Depression Multiple sclerosis Alcoholism Mother High cholesterol ADHD Vitamin D deficiency Other Mental health disorder Substance use disorder Social History Household Members: Spouse Housing: House Alcohol intake: current Alcohol intake frequency: holidays/special occasions only Patient Tobacco Use Status: Never used Tobacco e-Cigarette/Vaping Use: Never Used Second Hand Smoke Exposure: No Patient : No service: No Current occupational status: employed 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 occupational exposures/hazards: No Sexual orientation: Straight/Heterosexual Gender identity: Female Cognitive needs: No Hearing needs: No Vision needs: No Female Reproductive History Menstrual Age of Menarche: 13 Date of last menstrual period: 05/09/25 Questionnaire Thrive Questionnaire Date Thrive assessed: 03/02/25 I am a: Patient What is your living situation today?: I have a steady place to live Within the past 12 months, did the food you bought not last and you didn't have the money to get more?: Never true Within the past 12 months, did you worry whether your food would run out before you got money to buy more?: Never true Do you have trouble paying for medicines?: No Do you have trouble getting transportation to medical appointments?: No Do you have trouble paying your heating and electricity bill?: No Do you have trouble taking care of your child, family member or friend?: No Do you have trouble with day-to-day activities such as bathing, preparing meals, shopping, managing finances, etc.?: No Are you currently unemployed and looking for a job?: No Are you interested in more education?: No Currently or been in a relationship where the following occur: No concerns reported THRIVE Score: 0 LEÓN-7 AMB Questionnaire LEÓN-7 Date LEÓN - 7 assessed: 03/02/25 Source: Developed by DrsAnisha Brody, Simi Olvera, Darrell Floyd and colleagues, with an educational tracy from [employer]. Physical exam (Primary Care) Vital Signs: Last Vital Signs Temp 98.0 F 05/28/25 10:07 Pulse 86 05/28/25 10:07 Resp 16 05/28/25 10:07 BP 100/52 L 05/28/25 10:07 Pulse Ox 98 05/28/25 10:07 Oxygen Delivery Method Room Air 05/28/25 10:07 BMI result Body Mass Index 36.6 Tobacco/Smoking Status: Tobacco use Status Tobacco use date assessed 05/28/25 05/28/25 10:10 Patient Tobacco Use Status Never used Tobacco 05/28/25 09:49 e-Cigarette/Vaping Use Never Used 05/28/25 09:49 Thrive Assessment: Date of Thrive Assessment Date Thrive assessed 03/02/25 05/28/25 09:49 Currently or been in a relationship where the following occur: No concerns reported Coding Level of Care Code Est Pt Level 4 (14773) Diagnoses Chest pain on exertion R07.9 Hyperlipidemia E78.5 Anxiety F41.9 Factor V Leiden D68.51 Infertility, female N97.9 Assessment & Plan Assessment & Plan (1) Chest pain on exertion: Code(s): R07.9 - Chest pain, unspecified Category: Medical Plan: Ongoing chest pain on exertion and palpitations. She notes she often has a fast heart rate and is anxious about this. Heart rate in the office is 86 beats per minute and she notes that she feels safe at doctor's offices and her heart rate comes down. Reviewed stress test which showed no ischemia or infarction with heart rate reaching 90% maximum predicted heart rate. Reassured her that even with high exertion no ischemia was seen on her stress test. Reassured her that when she is feeling safe heart rate is in normal range. Patient did feel some chest pain while she was performing stress test however. Will refer her to Cardiology (2) Hyperlipidemia: Code(s): E78.5 - Hyperlipidemia, unspecified Category: Medical Plan: Very high cholesterol levels. Had given her a statin and she says she is taking this about twice to 3 times a week She also notes that she improved her diet Only got her lipids drawn today so I do not have them available yet. Will follow-up on these and call if action is required. Otherwise, will review at her next visit with me. She is working on getting and will discontinue this medication if she conceives. (3) Anxiety: Code(s): F41.9 - Anxiety disorder, unspecified Category: Medical Plan: Ongoing anxiety Her therapist has given alprazolam which she says she does not want to take if she gets . (4) Factor V Leiden: Code(s): D68.51 - Activated protein C resistance Category: Medical Plan: Patient has seen Hematology-Oncology No recommendation for anticoagulation during . (5) Infertility, female: Code(s): N97.9 - Female infertility, unspecified Category: Medical Plan: Undergoing IVF Follow-up with your specialist as recommended Orders: Referrals Cardiology Referral R07.9 - Chest pain, unspecified
[2025-05-28 10:07] VITALS: BP 100/52; PULSE 86; RESP 16; TEMP 36.7; O2SAT 98; BMI 36.6
--- OUTSIDE RECORDS SUMMARY | 2025-05-28 11:05 | XMS_ITS | Encounter Summary ---
Author Organization [facility]erged With [facility] Address [facility] [address] [place] [phone] Phone Care Team Providers Care Monitor And Storage Bin Tender Name Role Phone Rajesh Byrd MD Primary Care Provider Encounter Details Date Type Department Care Team (Late st Contact Info) Description 08/31/2022 Transcribe Orders Merg[facility] With [facility] [address] [place] [id number] Jamshid Escoto MD Social History Tobacco Use [...] on filedocumented in this encounter Care Teams Monitor And Storage Bin Tender Relationship Specialty Start Date End Date Rajesh Byrd MD PCP - General 03/07/20 documented as of this encounter Additional Source Comments The information contained in this document represents components of the legal health record. It is not the complete legal health record.[facility]
--- OUTSIDE RECORDS SUMMARY | 2025-05-28 11:05 | XMS_ITS | Clinical Summary ---
Author Organization [facility] Address [address] [place] [id number] Phone Care Team Providers Care Clay Caster Name Role Phone Rajesh Byrd MD Primary [...] F ertility and after bariatric surgery . 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 PAP SMEAR [...] 52, 56, 58, 59, 66, 68) by [employer] Onclarity HR-HPV analysis. Clinical correlation is advised. This HPV test was performed at [facility], [address] [place] [address]. This test has been FDA approved for [facility] cervical cytology specimens. The accuracy and precision of this test for all other specimen sources has been verified in the Cytopathology Laboratory of the [facility] and has not been cleared or approved by the U.S. Food and Drug Administration. Clinical correlation is advised. CLINICAL HISTORY Date of Last Menstrual Period: Not Provided Menstrual History: Unknown Other Clinical Conditions: Screening Pap SPECIMEN SOURCE A: PAP SMEAR (SUREPATH) CE Patient Name: ANNE-MARIE MOTA : 1985 (Age: 34) Sex: F Institution: [facility] Location: [facility] Date of Collection: 04/22/2020 Date of Reported: 04/24/2020 15:29 Results to: Mae Mcdonnell MD Mae Mcdonnell MD CYTOLOGY ORDERABLES Edited Resul t - Final SEE NARRATIVE from Last 3 Months or Most Recently Relevant to Health Maintenance Insurance [employer] [place] [id number] [employer] [place] [address] ON LICENSE OF [facility] Care Teams Clay Caster Relationship Specialty Start Date End Date Rajesh Byrd MD PCP - General 03/07/20 Additional Source Comments The information contained in this document represents components of the legal health record. It is not the complete legal health record.[facility]
--- OUTSIDE RECORDS SUMMARY | 2025-05-28 11:06 | XMS_ITS | Encounter Summary ---
Author Organization [facility] Address [facility] [address] [address] Phone Care Team Providers Care Internal Sales Engineer Name Role Phone Rajesh Byrd MD Primary Care Provider Encounter Details Date Type Department Care Team (Late st Contact Info) Description 09/15/2022 Procedure Pass OR Admitting Dept - Virtual Department [address] [place] [address] Social History Tobacco Use Types Packs/Day Years [...] on filedocumented in this encounter Care Teams Internal Sales Engineer Relationship Specialty Start Date End Date Rajesh Byrd MD PCP - General 03/07/20 documented as of this encounter Additional Source Comments The information contained in this document represents components of the legal health record. It is not the complete legal health record.[facility]
== END 2025-05-28 11:06 | disposition home or self-care (01) ==
LOC: HO.HMCFM 09:40
PROVIDERS: PCP Family Medicine; Visit Provider Family Medicine
DX: R07.9 Chest pain, unspecified (principal); E78.5 Hyperlipidemia, unspecified; F41.9 Anxiety disorder, unspecified; D68.51 Activated protein C resistance; N97.9 Female infertility, unspecified

== ENCOUNTER 2025-05-28 09:39 | Outpatient (REF) | payer OTHER, SELFPAY ==
[2025-05-28 15:30] LABS: Appearance Urine Turbid; Glucose Urine UA Negative (Negative); PH 6.0 (5.0-9.0); Specific Gravity - Urine 1.025 (1.005-1.025)
[2025-05-28 15:54] LABS: Alanine Aminotransferase 27 U/L (0-31); Albumin Level 4.0 g/dL (3.5-5.0); Alkaline Phosphatase 85 U/L (39-117); Anion Gap 11 (12-20); Aspartate Amino Transferase 24 U/L (5-31); Blood Urea Nitrogen 10 mg/dL (9-16); Calcium 8.8 mg/dL (8.4-10.2); Carbon Dioxide 23 mmol/L (22-29); Chloride 109 mmol/L (96-108); Cholesterol 149 mg/dL (<200); Estimated Glomerular Filt Rate > 60; HDL Cholesterol 65 mg/dL (>40); Potassium 3.9 mmol/L (3.3-5.1); Sodium 139 mmol/L (135-145); Total Protein 6.5 g/dL (6.5-8.0); Triglycerides 51 mg/dL (<150)
== END 2025-05-28 09:40 | disposition home or self-care (01) ==
LOC: HO.WFDLDS 09:39
PROVIDERS: PCP Family Medicine; Visit Provider Family Medicine
DX: Z00.00 Encounter for general adult medical examination without abnormal findings (principal); R82.90 Unspecified abnormal findings in urine; E78.00 Pure hypercholesterolemia, unspecified
CPT/HCPCS: 36415; 80053; 80061; 81003